=== PATIENT | female | born 1990 | race Caucasian/White ===

== ENCOUNTER 2016-10-28 09:32 | Emergency (ER) | payer BC, OTHER ==
[2016-10-28] MEDS ORDERED: cefTRIAXone SOD 1 GM VIAL (J0696) As Ordered ONE (09:50)
--- NOTE | 2016-10-28 10:32 | EDDOCDS ---
Nurse's Notes [facility] Name: Lydia Grissom Age: 25 yrs Sex: Female : 1990 Arrival Date: 10/28/2016 Time: 09:32 Bed I1 / M1 Private MD: Brijesh Sarabia Diagnosis: Urinary tract infection, site not specified-Recheck Presentation: 10/28 09:39 Presenting complaint: Patient states: here for IV rocephin for her UTI. Adult Sepsis po Screening: The patient does not have new or worsening altered mentation. Patient's respiratory rate is less than 22. Systolic blood pressure is greater than 100. Patient has a qSOFA score of 0- Negative Sepsis Screen. Suicide/Homicide risk assessment- the patient denies having any suicidal and/or homicidal ideations and does not present with any other emotional, behavioral or mental health complaints. Status: Patient is not a field services manager or dependent. Transition of care: patient was not received from another setting of care. 09:39 Acuity: FADIA Level 4 po 09:39 Method Of Arrival: Walkin/Carried/Asstd po Triage Assessment: 09:42 General: Appears in no apparent distress, Behavior is appropriate for age, cooperative, po pleasant. Pain: Location: left flank and right flank Pain currently is 2 out of 10 on a pain scale. Is continuous. HIV screening NA for this visit Offered previously. Neurological: Level of Consciousness is awake, alert, Oriented to person, place, time. Respiratory: Airway is patent Respiratory effort is even, unlabored. Derm: Skin is pink, warm & dry. 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 albuterol sulfate 90 mcg/actuation inhalation HFAA 2 puffs as needed 2. Advair Diskus 100-50 mcg/dose Inhl dsdv 1 puff as needed 3. Bactrim DS 800-160 mg Oral tab 1 tab 2 times per day 4. lisinopril 5 mg Oral tab 1 tab once daily - PMHx: double reflux kidney disease; exercise induced ashtma; Hypertension; - PSHx: 2 surgeries for kidney reflux; - Social history: Smoking status: Patient states was never smoker of tobacco. No barriers to communication noted, The patient speaks fluent Polish. - Family history: Not pertinent. - : The pt / caregiver states he / she is not on anticoagulants. Home medication list is obtained from the patient. - Exposure Risk Screening:: None identified. Screenin:59 Screening information is obtained from the patient. Fall risk: No risks identified. hs1 Assistance ADL's: requires no assistance with activities of daily living. Abuse/DV Screen: The patient / caregiver reports he/she is: not in a situation that causes fear, pain or injury. Nutritional screening: No deficits noted. Advance Directives: There is no active DNR order. home support is adequate. Assessment: :59 General: Appears in no apparent distress, comfortable, Behavior is appropriate for age, hs1 cooperative. Pain: Denies pain. Neurological: No deficits noted. Respiratory: No deficits noted. : Reports burning with urination urinary frequency. Vital Signs: 09:34 BP 129 / 89; Pulse 94; Resp 18; Temp 98.3; Pulse Ox 100% on R/A; Weight 83.91 kg (R); sar1 Height 5 ft. 6 in. (167.64 cm) (R); Pain 2/10; 10:30 BP 108 / 70; Pulse 72; Resp 20; Temp 97.8(O); Pulse Ox 99% on R/A; jc4 09:34 Body Mass Index 29.86 (83.91 kg, 167.64 cm) sar Vitals: 09:34 Log In Time: October 28, 2016 at 09:34. [email or web address] ED Course: 09:34 Patient visited by Elissa Thapa, Survey Superintendent. sar1 09:34 Brijesh Sarabia PA is Private Physician. sar1 09:34 Patient moved to Waiting sar1 09:35 Patient moved to Pre RCE sar1 09:40 Triage Initiated po 09:42 Arm band placed on left wrist. Patient placed in exam room. po 09:43 Patient visited by Maxim Hancock RN. po 09:44 Trista Ro, ALLYSON is Primary Nurse. po 09:44 Patient moved to I2 / M2 po 09:46 D[facility] Nixon [facility]C [facility]. ef1 09:46 Cornelia Jamil MD is Attending Physician. ef1 09:46 Patient visited by Dasia Nixon PA-C. ef1 09:46 Patient moved to I1 / M1 ef1 09:47 [facility] Payment Agreement was scanned into [employer] and attached to record. jp5 09:59 Inserted saline lock: 20 gauge in right antecubital area The patient tolerated the hs1 procedure well. 10:14 Patient visited by Dasia Nixon PA-C. ef1 10:27 Brijesh Sarabia PA is Referral Physician. ef1 10:31 The patient / caregiver is instructed regarding the plan of care and ED course. jc4 10:31 Discontinued lock intact, bleeding controlled, pressure dressing applied, No jc4 redness/swelling at site. 10:31 No procedures done that require assistance. jc4 Administered Medications: 09:59 Drug: cefTRIAXone 1 grams [ceftriaxone 1 gram solution for injection] Route: IVPB; hs1 Infused Over: 30 mins; Site: right antecubital; 10:29 Follow up: IV Status: Completed infusion; IV Intake: 50ml jc4 Intake: 10:29 IV: 50.00ml; Total: 50.00ml. jc4 Order Results: There are currently no results for this order. Outcome: 10:27 Discharge ordered by Provider. ef1 10:30 Discharge Assessment: Patient awake, alert and oriented x 3. No cognitive and/or jc4 functional deficits noted. Patient verbalized understanding of disposition instructions. patient administered narcotics - no. The following High Risk Discharge criteria are identified: None. Discharged to home ambulatory, with significant other. Condition: stable. Discharge instructions given to patient, Instructed on discharge instructions, follow up and referral plans. medication usage, Demonstrated understanding of instructions, medications, Pt was receptive of discharge instructions/ teaching. No special radiology studies were completed. Property :Personal belongings accompany Pt. 10:31 Patient left the ED. jc4 Signatures: Maxim Hancock,RN ALLYSON po Dasia Nixon PA-C PA-C ef1 Emy Hsu RN RN hs1 Trista Ro RN RN jc4 Elissa Thapa, Survey Superintendent Unit sar1 Lucy Esquivel jp5 MTDD
--- NOTE | 2016-10-28 10:32 | EDDOCDS ---
Physician Documentation [facility] Name: Lydia Grissom Age: 25 yrs Sex: Female : 1990 Arrival Date: 10/28/2016 Time: 09:32 Bed I1 / M1 Private MD: Brijesh Sarabia Disposition: 10/28/16 10:27 Discharged to Home/Self Care. Impression: Urinary tract infection, site not specified - Recheck. - Condition is Stable. - Discharge Instructions: Urinary Tract Infection, [id number]. - Prescriptions for Cipro 500 mg Oral Tablet - take 1 tablet by ORAL route 2 times per day; 6 tablet. Reglan 10 mg Oral Tablet - take 1 tablet by ORAL route every 6 hours take 30 minutes before meals and at bedtime; 20 tablet. - Medication Reconciliation, Local Pharmacy Hours form. - Follow up: Brijesh Sarabia; When: 1 - 2 days; Reason: Recheck today's complaints, Continuance of care. Follow up: Emergency Department; Reason: Worsening of conditions. - Problem is new. - Symptoms have improved. - Notes: Pt understands to f/u with her Urologist/Nephroligist or here sooner if s/s worsen. Historical: - Allergies: no known allergies; - Home Meds: 1. albuterol sulfate 90 mcg/actuation inhalation HFAA 2 puffs as needed 2. Advair Diskus 100-50 mcg/dose Inhl dsdv 1 puff as needed 3. Bactrim DS 800-160 mg Oral tab 1 tab 2 times per day 4. lisinopril 5 mg Oral tab 1 tab once daily - PMHx: double reflux kidney disease; exercise induced ashtma; Hypertension; - PSHx: 2 surgeries for kidney reflux; - Social history: Smoking status: Patient states was never smoker of tobacco. No barriers to communication noted, The patient speaks fluent Albanian. - Family history: Not pertinent. - : The pt / caregiver states he / she is not on anticoagulants. Home medication list is obtained from the patient. - Exposure Risk Screening:: None identified. 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 6 in. (167.64 cm) (R); Pain 2/10; 10:30 BP 108 / 70; Pulse 72; Resp 20; Temp 97.8(O); Pulse Ox 99% on R/A; jc4 09:34 Body Mass Index 29.86 (83.91 kg, 167.64 cm) sar1 MDM: 09:47 [facility] Payment Agreement was scanned into [employer] and attached to record. jp5 09:47 IV Saline Lock ordered. ef1 09:47 cefTRIAXone 1 grams IVPB once over 30 mins; dilute in 50mL of NS or D5W ordered. ef1 09:47 Financial registration complete. jp5 Administered Medications: 09:59 Drug: cefTRIAXone 1 grams [ceftriaxone 1 gram solution for injection] Route: IVPB; hs1 Infused Over: 30 mins; Site: right antecubital; 10:29 Follow up: IV Status: Completed infusion; IV Intake: 50ml jc4 Signatures: Maxim Hancock,RN RN Dasia Lim PA-C PA-C ef1 Trista Ro RN RN jc4 Lucy Esquivel jp5 Emy Hsu RN hs1 The chart was reviewed and I authenticate all verbal orders and agree with the evaluation and treatment provided.Attachments: 09:47 [facility] Payment Agreement jp5 MTDD
--- NOTE | 2016-10-30 11:32 | EDDOCDS ---
Nurse's Notes [facility] Name: Lydia Grissom Age: 25 yrs Sex: Female : 1990 Arrival Date: 10/28/2016 Time: 09:32 Bed I1 / M1 Private MD: Brijesh Sarabia Diagnosis: Urinary tract infection, site not specified-Recheck Presentation: 10/28 09:39 Presenting complaint: Patient states: here for IV rocephin for her UTI. Adult Sepsis po Screening: The patient does not have new or worsening altered mentation. Patient's respiratory rate is less than 22. Systolic blood pressure is greater than 100. Patient has a qSOFA score of 0- Negative Sepsis Screen. Suicide/Homicide risk assessment- the patient denies having any suicidal and/or homicidal ideations and does not present with any other emotional, behavioral or mental health complaints. Status: Patient is not a sales service manager or dependent. Transition of care: patient was not received from another setting of care. 09:39 Acuity: FADIA Level 4 po 09:39 Method Of Arrival: Walkin/Carried/Asstd po Triage Assessment: 09:42 General: Appears in no apparent distress, Behavior is appropriate for age, cooperative, po pleasant. Pain: Location: left flank and right flank Pain currently is 2 out of 10 on a pain scale. Is continuous. HIV screening NA for this visit Offered previously. Neurological: Level of Consciousness is awake, alert, Oriented to person, place, time. Respiratory: Airway is patent Respiratory effort is even, unlabored. Derm: Skin is pink, warm & dry. 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 albuterol sulfate 90 mcg/actuation inhalation HFAA 2 puffs as needed 2. Advair Diskus 100-50 mcg/dose Inhl dsdv 1 puff as needed 3. Bactrim DS 800-160 mg Oral tab 1 tab 2 times per day 4. lisinopril 5 mg Oral tab 1 tab once daily - PMHx: double reflux kidney disease; exercise induced ashtma; Hypertension; - PSHx: 2 surgeries for kidney reflux; - Social history: Smoking status: Patient states was never smoker of tobacco. No barriers to communication noted, The patient speaks fluent Setswana. - Family history: Not pertinent. - : The pt / caregiver states he / she is not on anticoagulants. Home medication list is obtained from the patient. - Exposure Risk Screening:: None identified. Screenin:59 Screening information is obtained from the patient. Fall risk: No risks identified. hs1 Assistance ADL's: requires no assistance with activities of daily living. Abuse/DV Screen: The patient / caregiver reports he/she is: not in a situation that causes fear, pain or injury. Nutritional screening: No deficits noted. Advance Directives: There is no active DNR order. home support is adequate. Assessment: :59 General: Appears in no apparent distress, comfortable, Behavior is appropriate for age, hs1 cooperative. Pain: Denies pain. Neurological: No deficits noted. Respiratory: No deficits noted. : Reports burning with urination urinary frequency. Vital Signs: 09:34 BP 129 / 89; Pulse 94; Resp 18; Temp 98.3; Pulse Ox 100% on R/A; Weight 83.91 kg (R); sar1 Height 5 ft. 6 in. (167.64 cm) (R); Pain 2/10; 10:30 BP 108 / 70; Pulse 72; Resp 20; Temp 97.8(O); Pulse Ox 99% on R/A; jc4 09:34 Body Mass Index 29.86 (83.91 kg, 167.64 cm) sar Vitals: 09:34 Log In Time: October 28, 2016 at 09:34. [facility] ED Course: 09:34 Patient visited by Elissa Thapa, Flight Security Specialist. sar1 09:34 Brijesh Sarabia PA is Private Physician. sar1 09:34 Patient moved to Waiting sar1 09:35 Patient moved to Pre RCE sar1 09:40 Triage Initiated po 09:42 Arm band placed on left wrist. Patient placed in exam room. po 09:43 Patient visited by Maxim Hancock RN. po 09:44 Trista Ro, ALLYSON is Primary Nurse. po 09:44 Patient moved to I2 / M2 po 09:46 Dasia Nixon [facility]C [facility]. ef1 09:46 Cornelia Jamil MD is Attending Physician. ef1 09:46 Patient visited by Dasia Nixon PA-C. ef1 09:46 Patient moved to I1 / M1 ef1 09:47 [facility] Payment Agreement was scanned into [employer] and attached to record. jp5 09:59 Inserted saline lock: 20 gauge in right antecubital area The patient tolerated the hs1 procedure well. 10:14 Patient visited by Dasia Nixon PA-C. ef1 10:27 Brijesh Sarabia PA is Referral Physician. ef1 10:31 The patient / caregiver is instructed regarding the plan of care and ED course. jc4 10:31 Discontinued lock intact, bleeding controlled, pressure dressing applied, No jc4 redness/swelling at site. 10:31 No procedures done that require assistance. jc4 11:26 T-Sheet-- Draft Copy was scanned into [employer] and attached to record. se Administered Medications: 09:59 Drug: cefTRIAXone 1 grams [ceftriaxone 1 gram solution for injection] Route: IVPB; hs1 Infused Over: 30 mins; Site: right antecubital; 10:29 Follow up: IV Status: Completed infusion; IV Intake: 50ml jc4 Intake: 10:29 IV: 50.00ml; Total: 50.00ml. jc4 Order Results: There are currently no results for this order. Outcome: 10:27 Discharge ordered by Provider. ef1 10:30 Discharge Assessment: Patient awake, alert and oriented x 3. No cognitive and/or jc4 functional deficits noted. Patient verbalized understanding of disposition instructions. patient administered narcotics - no. The following High Risk Discharge criteria are identified: None. Discharged to home ambulatory, with significant other. Condition: stable. Discharge instructions given to patient, Instructed on discharge instructions, follow up and referral plans. medication usage, Demonstrated understanding of instructions, medications, Pt was receptive of discharge instructions/ teaching. No special radiology studies were completed. Property :Personal belongings accompany Pt. 10:31 Patient left the ED. jc4 Signatures: Maxim Hancock RN RN Dasia Nixon PA-C PA-C ef1 Emy Hsu RN RN hs1 Trista Ro RN RN jc4 Elissa Thapa, Flight Security Specialist Unit Lucy Crane jp5 Cornelia Thompson [facility] Chart Complete MTDD
--- NOTE | 2016-10-30 11:32 | EDDOCDS ---
Physician Documentation [facility] Name: Lydia Grissom Age: 25 yrs Sex: Female : 1990 Arrival Date: 10/28/2016 Time: 09:32 Bed I1 / M1 Private MD: Brijesh Sarabia Disposition: 10/28/16 10:27 Discharged to Home/Self Care. Impression: Urinary tract infection, site not specified - Recheck. - Condition is Stable. - Discharge Instructions: Urinary Tract Infection, Gjyo-[id number]. - Prescriptions for Cipro 500 mg Oral Tablet - take 1 tablet by ORAL route 2 times per day; 6 tablet. Reglan 10 mg Oral Tablet - take 1 tablet by ORAL route every 6 hours take 30 minutes before meals and at bedtime; 20 tablet. - Medication Reconciliation, Local Pharmacy Hours form. - Follow up: Brijesh Sarabia; When: 1 - 2 days; Reason: Recheck today's complaints, Continuance of care. Follow up: Emergency Department; Reason: Worsening of conditions. - Problem is new. - Symptoms have improved. - Notes: Pt understands to f/u with her Urologist/Nephroligist or here sooner if s/s worsen. Historical: - Allergies: no known allergies; - Home Meds: 1. albuterol sulfate 90 mcg/actuation inhalation HFAA 2 puffs as needed 2. Advair Diskus 100-50 mcg/dose Inhl dsdv 1 puff as needed 3. Bactrim DS 800-160 mg Oral tab 1 tab 2 times per day 4. lisinopril 5 mg Oral tab 1 tab once daily - PMHx: double reflux kidney disease; exercise induced ashtma; Hypertension; - PSHx: 2 surgeries for kidney reflux; - Social history: Smoking status: Patient states was never smoker of tobacco. No barriers to communication noted, The patient speaks fluent Estonian. - Family history: Not pertinent. - : The pt / caregiver states he / she is not on anticoagulants. Home medication list is obtained from the patient. - Exposure Risk Screening:: None identified. 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 6 in. (167.64 cm) (R); Pain 2/10; 10:30 BP 108 / 70; Pulse 72; Resp 20; Temp 97.8(O); Pulse Ox 99% on R/A; jc4 09:34 Body Mass Index 29.86 (83.91 kg, 167.64 cm) sar1 MDM: 09:47 [facility] Payment Agreement was scanned into [employer] and attached to record. jp5 09:47 IV Saline Lock ordered. ef1 09:47 cefTRIAXone 1 grams IVPB once over 30 mins; dilute in 50mL of NS or D5W ordered. ef1 09:47 Financial registration complete. jp5 11:26 T-Sheet-- Draft Copy was scanned into [employer] and attached to record. [facility] Administered Medications: 09:59 Drug: cefTRIAXone 1 grams [ceftriaxone 1 gram solution for injection] Route: IVPB; hs1 Infused Over: 30 mins; Site: right antecubital; 10:29 Follow up: IV Status: Completed infusion; IV Intake: 50ml jc4 Signatures: Maxim Hancock,RN RN Dasia Lim PABarbaraC PA-C ef1 Trista Ro RN RN jc4 Lucy Esquivel 5 Cornelia Thompson Hannah RN hs1 The chart was reviewed and I authenticate all verbal orders and agree with the evaluation and treatment provided.Attachments: 09:47 [facility] Payment Agreement 5 11:26 T-Sheet-- Draft Copy [facility] Chart Complete MTDD
--- NOTE | 2016-10-30 11:32 | EDDOCDS ---
Physician Documentation [facility] Name: Lydia Grissom Age: 25 yrs Sex: Female : 1990 Arrival Date: 10/28/2016 Time: 09:32 Bed I1 / M1 Private MD: Brijesh Sarabia Disposition: 10/28/16 10:27 Discharged to Home/Self Care. Impression: Urinary tract infection, site not specified - Recheck. - Condition is Stable. - Discharge Instructions: Urinary Tract Infection, [id number]. - Prescriptions for Cipro 500 mg Oral Tablet - take 1 tablet by ORAL route 2 times per day; 6 tablet. Reglan 10 mg Oral Tablet - take 1 tablet by ORAL route every 6 hours take 30 minutes before meals and at bedtime; 20 tablet. - Medication Reconciliation, Local Pharmacy Hours form. - Follow up: Brijesh Sarabia; When: 1 - 2 days; Reason: Recheck today's complaints, Continuance of care. Follow up: Emergency Department; Reason: Worsening of conditions. - Problem is new. - Symptoms have improved. - Notes: Pt understands to f/u with her Urologist/Nephroligist or here sooner if s/s worsen. Historical: - Allergies: no known allergies; - Home Meds: 1. albuterol sulfate 90 mcg/actuation inhalation HFAA 2 puffs as needed 2. Advair Diskus 100-50 mcg/dose Inhl dsdv 1 puff as needed 3. Bactrim DS 800-160 mg Oral tab 1 tab 2 times per day 4. lisinopril 5 mg Oral tab 1 tab once daily - PMHx: double reflux kidney disease; exercise induced ashtma; Hypertension; - PSHx: 2 surgeries for kidney reflux; - Social history: Smoking status: Patient states was never smoker of tobacco. No barriers to communication noted, The patient speaks fluent Czech. - Family history: Not pertinent. - : The pt / caregiver states he / she is not on anticoagulants. Home medication list is obtained from the patient. - Exposure Risk Screening:: None identified. RENEWAL SPECIALIST: 10/28 09:42 LMP 10/02/2016 po Vital Signs: 09:34 BP 129 / 89; Pulse 94; Resp 18; Temp 98.3; Pulse Ox 100% on R/A; Weight 83.91 kg / sar1 184.99 lbs (R); Height 5 ft. 6 in. (167.64 cm) (R); Pain 2/10; 10:30 BP 108 / 70; Pulse 72; Resp 20; Temp 97.8(O); Pulse Ox 99% on R/A; jc4 09:34 Body Mass Index 29.86 (83.91 kg, 167.64 cm) sar1 MDM: 09:47 [facility] Payment Agreement was scanned into [employer] and attached to record. jp5 09:47 IV Saline Lock ordered. ef1 09:47 cefTRIAXone 1 grams IVPB once over 30 mins; dilute in 50mL of NS or D5W ordered. ef1 09:47 Financial registration complete. jp5 11:26 T-Sheet-- Draft Copy was scanned into [employer] and attached to record. [facility] Administered Medications: 09:59 Drug: cefTRIAXone 1 grams [ceftriaxone 1 gram solution for injection] Route: IVPB; hs1 Infused Over: 30 mins; Site: right antecubital; 10:29 Follow up: IV Status: Completed infusion; IV Intake: 50ml jc4 Signatures: Maxim Hancock,RN RN Dasia Lim PABarbaraC PA-C ef1 Trista Ro RN RN jc4 Lucy Esquivel 5 Cornelia Thompson Hannah RN hs1 The chart was reviewed and I authenticate all verbal orders and agree with the evaluation and treatment provided.Attachments: 09:47 [facility] Payment Agreement 5 11:26 T-Sheet-- Draft Copy [facility] Chart Complete MTDD
== END 2016-10-28 10:31 | disposition home or self-care (01) ==
LOC: M ED 09:32
DX: Z51.89 Encounter for other specified aftercare (principal); N39.0 Urinary tract infection, site not specified; I10 Essential (primary) hypertension; N13.70 Vesicoureteral-reflux, unspecified; J45.990 Exercise induced bronchospasm; Z79.899 Other long term (current) drug therapy
CPT/HCPCS: 96365; 99283; J0696

== ENCOUNTER → 2017-01-01 | Outpatient (REF) | payer OTHER ==
[2017-01-01 11:36] LABS: BASO % 0.2 % (0.0-1.0); EOS # 0.1 K/mm3 (0.0-0.50); EOS % 1.4 % (0.0-3.0); LARGE UNSTAINED CELL # 0.2 K/mm3 (0.0-0.4); LARGE UNSTAINED CELL % 2.3 % (0.0-4.0); LYMPH # 1.7 K/mm3 (1.5-6.5); LYMPH % 20.9 % (24.0-44.0); MEAN CORPUSCULAR HEMOGLOBIN 28.6 pg (27.0-33.0); MEAN CORPUSCULAR HGB CONC 33.6 g/dl (32.0-36.5); MEAN CORPUSCULAR VOLUME 85.3 fl (80.0-96.0); MONO # 0.4 K/mm3 (0.0-0.8); MONO % 4.9 % (0.0-5.0); NEUTROPHILS # 5.7 K/mm3 (1.8-7.7); NEUTROPHILS % 70.3 % (36.0-66.0); PLATELET COUNT, AUTOMATED 256 k/mm3 (150-450); RED CELL DISTRIBUTION WIDTH 12.4 % (11.5-14.5); WHITE BLOOD COUNT 8.1 K/mm3 (4.0-10.0)
[2017-01-01 11:46] LABS: ANION GAP 10 MEQ/L (8-16); BLOOD UREA NITROGEN 10 MG/DL (7-18); CALCIUM LEVEL 9.3 MG/DL (8.5-10.1); CARBON DIOXIDE LEVEL 26 MEQ/L (21-32); CHLORIDE LEVEL 103 MEQ/L (98-107); CREATININE FOR GFR 0.84 MG/DL (0.55-1.02); GLOMERULAR FILTRATION RATE > 60.0 (>60); GLUCOSE, FASTING 93 MG/DL (70-105); POTASSIUM SERUM 4.1 MEQ/L (3.5-5.1); SODIUM LEVEL 139 MEQ/L (136-145)
== END ==
LOC: M LAB REF 11:11
PROVIDERS: ATTEND Physician Assistant
DX: R50.9 Fever, unspecified (principal)

== ENCOUNTER 2017-04-19 22:28 | Emergency (ER) | payer OTHER ==
[~2017-04-19] VITALS: Ht 167.6 cm; Wt 86.3 kg
[2017-04-19] MEDS ORDERED: LISI-542 PO (22:33)
[2017-04-19] MEDS ORDERED: KETOROLAC 30 MG/ML VIAL (J1885) As Ordered ONE (22:58)
[2017-04-19] MEDS ORDERED: KETOROLAC 30 MG/ML VIAL (J1885) IV ONE (23:00)
[2017-04-19 23:06] LABS: BASO % 0.5 % (0.0-1.0); EOS # 0.5 K/mm3 (0.0-0.50); EOS % 4.9 % (0.0-3.0); LARGE UNSTAINED CELL # 0.1 K/mm3 (0.0-0.4); LARGE UNSTAINED CELL % 1.5 % (0.0-4.0); LYMPH # 3.4 K/mm3 (1.5-6.5); LYMPH % 34.2 % (24.0-44.0); MEAN CORPUSCULAR HEMOGLOBIN 28.6 pg (27.0-33.0); MEAN CORPUSCULAR HGB CONC 33.5 g/dl (32.0-36.5); MEAN CORPUSCULAR VOLUME 85.5 fl (80.0-96.0); MONO # 0.4 K/mm3 (0.0-0.8); MONO % 3.9 % (0.0-5.0); NEUTROPHILS # 5.3 K/mm3 (1.8-7.7); NEUTROPHILS % 54.9 % (36.0-66.0); PLATELET COUNT, AUTOMATED 292 k/mm3 (150-450); RED CELL DISTRIBUTION WIDTH 12.7 % (11.5-14.5); WHITE BLOOD COUNT 9.6 K/mm3 (4.0-10.0)
[2017-04-19] MEDS ORDERED: NORCO, ANEXSIA 5/325MG TABLET (HYDROcodone/ACETAMINOPHEN) PO ONE ×2 (23:15→23:30)
[2017-04-19 23:20] LABS: ANION GAP 9 MEQ/L (8-16); BLOOD UREA NITROGEN 20 MG/DL (7-18); CALCIUM LEVEL 8.7 MG/DL (8.5-10.1); CARBON DIOXIDE LEVEL 25 MEQ/L (21-32); CHLORIDE LEVEL 106 MEQ/L (98-107); CREATININE FOR GFR 0.97 MG/DL (0.55-1.02); GLOMERULAR FILTRATION RATE > 60.0 (>60); GLUCOSE, FASTING 101 MG/DL (70-105); POTASSIUM SERUM 3.9 MEQ/L (3.5-5.1); SODIUM LEVEL 140 MEQ/L (136-145)
[2017-04-19] MEDS ORDERED: NAPR500T PO (23:24)
[2017-04-19] MEDS ORDERED: CIPR-249 PO (23:24)
[2017-04-19] MEDS ORDERED: CIPROFLOXACIN 500 MG TAB PO ONE (23:30)
[2017-04-19] MEDS ORDERED: cefTRIAXone SOD 1 GM in D5W MINI-BAG PLUS 50 ML IV ONE (23:30)
[2017-04-19 23:31] VITALS: BP 131/94
[2017-04-19] MEDS ORDERED: ZOFR4TAB3 PO (23:37)
== END 2017-04-19 23:56 | disposition home or self-care (01) ==
LOC: M ED 23:18
DX: N10 Acute pyelonephritis (principal); B96.20 Unspecified Escherichia coli [E. coli] as the cause of diseases classified elsewhere; I10 Essential (primary) hypertension; Z79.899 Other long term (current) drug therapy
CPT/HCPCS: 80048; 81001; 85025; 87088; 87186; 96374; 96375; 99283; J0696; J1885

== ENCOUNTER → 2017-06-03 | Outpatient (REF) | payer OTHER ==
[~2017-06-03] MED LIST: CIPR-249 PO; LISI-542 PO; NAPR500T PO; ZOFR4TAB3 PO
== END ==
LOC: M LAB REF 17:37
PROVIDERS: ATTEND Advanced Practice Midwife
DX: Z12.4 Encounter for screening for malignant neoplasm of cervix (principal)

== ENCOUNTER 2017-12-17 11:10 | Emergency (ER) | payer OTHER ==
[2017-12-17] MEDS: CEFTRIAXONE SOD 1 GM in APPROPRIATE DILUENT 1 EA IV (11:45)
[2017-12-17 11:51] LABS: BASO % 0.4 % (0.0-1.0); EOS # 0.2 10^3/uL (0.0-0.50); EOS % 2.2 % (0.0-3.0); HEMATOCRIT 39.4 % (36.0-47.0); HEMOGLOBIN 13.1 g/dl (12.0-16.0); IMMATURE GRANULOCYTE % 0.3 % (0-3.0); LYMPH # 2.3 10^3/uL (1.5-6.5); LYMPH % 29.5 % (24.0-44.0); MEAN CORPUSCULAR HEMOGLOBIN 28.6 pg (27.0-33.0); MEAN CORPUSCULAR HGB CONC 33.2 g/dl (32.0-36.5); MONO # 0.4 10^3/uL (0.0-0.8); MONO % 5.5 % (0.0-5.0); NEUTROPHILS # 4.8 10^3/uL (1.8-7.7); NEUTROPHILS % 62.1 % (36.0-66.0); PLATELET COUNT, AUTOMATED 262 10^3/uL (150-450); RED BLOOD COUNT 4.58 10^6/uL (4.00-5.40); WHITE BLOOD COUNT 7.8 10^3/uL (4.0-10.0)
[2017-12-17] MEDS: CIPROFLOXACIN 500 MG TAB PO (11:53)
[2017-12-17] MEDS: KETOROLAC 30 MG/ML VIAL (J1885) IV (11:54)
[2017-12-17] MEDS: NS 500 ML IV (11:55)
[2017-12-17 12:04] LABS: CONTROL LINE UCG INT CTR LINE PRESENT; URINE PREG TEST NEGATIVE (NEGATIVE)
[2017-12-17 12:05] LABS: SP GRAVITY,URINE MANUAL REFLEX 1.025 (1.002-1.035)
[2017-12-17 12:06] LABS: BILIRUBIN, URINE MANUAL NEGATIVE (NEGATIVE); BLOOD URINE MANUAL RFX POSITIVE (NEGATIVE); GLUCOSE, URINE (UA) MANUAL NEGATIVE (NEGATIVE); KETONE, URINE MANUAL NEGATIVE (NEGATIVE); MICROSCOPIC INDICATED? RFX YES (NO); NITRITE, URINE MANUAL RFX POSITIVE (NEGATIVE); PROTEIN, URINE MANUAL REFLEX 2+ mg/dL (NEGATIVE); UROBILINOGEN, URINE MANUAL NORMAL (NORMAL)
[2017-12-17 12:14] LABS: ALBUMIN 4.2 GM/DL (3.2-5.2); ALKALINE PHOSPHATASE 63 U/L (45-117); ALT/SGPT 16 U/L (12-78); ANION GAP 7 MEQ/L (8-16); AST/SGOT 11 U/L (7-37); BILIRUBIN,TOTAL 0.6 MG/DL (0.2-1.0); BLOOD UREA NITROGEN 13 MG/DL (7-18); C REACTIVE PROTEIN QUANTITATIV < 0.30 MG/DL (0.00-0.30); CALCIUM LEVEL 8.7 MG/DL (8.5-10.1); CARBON DIOXIDE LEVEL 26 MEQ/L (21-32); CHLORIDE LEVEL 107 MEQ/L (98-107); CREATININE FOR GFR 0.88 MG/DL (0.55-1.30); GLOMERULAR FILTRATION RATE > 60.0 (>60); GLUCOSE, FASTING 95 MG/DL (70-100); POTASSIUM SERUM 3.1 MEQ/L (3.5-5.1); SODIUM LEVEL 140 MEQ/L (136-145); TOTAL PROTEIN 7.7 GM/DL (6.4-8.2)
[2017-12-17 12:17] LABS: WBC, URINE MAN RFX TNTC /hpf (0-3)
[2017-12-17 12:18] LABS: BACTERIA, URINE LARGE AMOUNT; RENAL EPITHELIAL CELLS, URINE SMALL AMOUNT /hpf; SQUAMOUS EPITHELIAL CELL URINE LARGE AMOUNT /hpf (SMALL AMT); TRANSITIONAL EPI CELLS, URINE SMALL AMOUNT /hpf
[2017-12-17 12:21] LABS: HYALINE CAST, URINE NONE SEEN /lpf (0-1)
[2017-12-17 12:22] LABS: MICROSCOPIC EXAM PERFORMED
== END 2017-12-17 13:07 | disposition home or self-care (01) ==
LOC: M ED 11:10
DX: N10 Acute pyelonephritis (principal); N39.0 Urinary tract infection, site not specified; I10 Essential (primary) hypertension; N13.70 Vesicoureteral-reflux, unspecified; Z79.899 Other long term (current) drug therapy
CPT/HCPCS: J1885

== ENCOUNTER → 2018-05-08 | Outpatient (REF) | payer OTHER ==
[2018-05-08 20:14] LABS: APPEARANCE, URINE CLEAR (CLEAR); BACTERIA, URINE AUTO NEGATIVE (NEGATIVE); BILIRUBIN, URINE AUTO NEGATIVE (NEGATIVE); BLOOD, URINE BLOOD NEGATIVE (NEGATIVE); COLOR, URINE YELLOW (YELLOW); GLUCOSE, URINE (UA) AUTO NEGATIVE (NEGATIVE); KETONE, URINE AUTO NEGATIVE (NEGATIVE); LEUKOCYTE ESTERASE, URINE AUTO NEGATIVE (NEGATIVE); MUCUS, URINE SMALL (NEGATIVE); NITRITE, URINE AUTO NEGATIVE (NEGATIVE); PROTEIN, URINE AUTO NEGATIVE (NEGATIVE); RBC, URINE AUTO 0 /HPF (0-3); SPECIFIC GRAVITY URINE AUTO 1.015 (1.002-1.035); SQUAMOUS EPITHELIAL CELL UR AU 4 /HPF (0-6); UROBILINOGEN, URINE AUTO 0.2 mg/dL (0.0-2.0); WBC, URINE AUTO 1 /HPF (0-3)
== END ==
LOC: M LAB REF 17:16
DX: N39.0 Urinary tract infection, site not specified (principal)

== ENCOUNTER 2018-06-12 16:48 | Emergency (ER) | payer OTHER ==
[2018-06-12 17:51] LABS: BASO # 0.1 10^3/uL (0.0-0.2); BASO % 0.6 % (0.0-1.0); EOS # 0.2 10^3/uL (0.0-0.50); EOS % 2.5 % (0.0-3.0); HEMATOCRIT 37.5 % (36.0-47.0); HEMOGLOBIN 12.7 g/dl (12.0-15.5); IMMATURE GRANULOCYTE % 0.2 % (0-3.0); LYMPH % 32.1 % (24.0-44.0); MEAN CORPUSCULAR HEMOGLOBIN 29.6 pg (27.0-33.0); MEAN CORPUSCULAR HGB CONC 33.9 g/dl (32.0-36.5); MEAN CORPUSCULAR VOLUME 87.4 fl (80.0-96.0); MONO # 0.4 10^3/uL (0.0-0.8); MONO % 4.2 % (0.0-5.0); NEUTROPHILS # 5.7 10^3/uL (1.8-7.7); NEUTROPHILS % 60.4 % (36.0-66.0); PLATELET COUNT, AUTOMATED 262 10^3/uL (150-450); RED BLOOD COUNT 4.29 10^6/uL (4.00-5.40); RED CELL DISTRIBUTION WIDTH 11.9 % (11.5-14.5); WHITE BLOOD COUNT 9.4 10^3/uL (4.0-10.0)
[2018-06-12 18:01] LABS: KETONE, URINE AUTO RFX NEGATIVE (NEGATIVE); LEUKOCYTE ESTERASE UR AUTO RFX NEGATIVE (NEGATIVE); NITRITE, URINE AUTO RFX NEGATIVE (NEGATIVE); RBC, URINE AUTO RFX 2 /HPF (0-3); SPECIFIC GRAVITY UR AUTO RFX 1.001 (1.002-1.035); SQUAM EPITHELIAL CELL UR AURFX 0 /HPF (0-6); WBC, URINE AUTO RFX 0 /HPF (0-3)
[2018-06-12 18:26] LABS: ANION GAP 8 MEQ/L (8-16); BLOOD UREA NITROGEN 10 MG/DL (7-18); CALCIUM LEVEL 8.8 MG/DL (8.5-10.1); CARBON DIOXIDE LEVEL 27 MEQ/L (21-32); CHLORIDE LEVEL 106 MEQ/L (98-107); CREATININE FOR GFR 0.72 MG/DL (0.55-1.30); GLOMERULAR FILTRATION RATE > 60.0 (>60); GLUCOSE, FASTING 86 MG/DL (70-100); HCG, SERUM QUANTITATIVE 2551 MIU/ML; POTASSIUM SERUM 3.6 MEQ/L (3.5-5.1); SODIUM LEVEL 141 MEQ/L (136-145)
== END 2018-06-12 20:12 | disposition home or self-care (01) ==
LOC: M ED 16:48
DX: Z32.01 Encounter for pregnancy test, result positive (principal); N83.201 Unspecified ovarian cyst, right side; N93.9 Abnormal uterine and vaginal bleeding, unspecified; I10 Essential (primary) hypertension; Z3A.01 Less than 8 weeks gestation of pregnancy
CPT/HCPCS: 76801

== ENCOUNTER → 2018-06-14 | Outpatient (CLI) | payer OTHER ==
[2018-06-14 13:21] LABS: HCG, SERUM QUANTITATIVE 650 MIU/ML
== END ==
LOC: M LAB 12:40
DX: N92.6 Irregular menstruation, unspecified (principal)

== ENCOUNTER → 2018-07-01 | Outpatient (CLI) | payer OTHER ==
[2018-07-01 08:13] LABS: HCG, SERUM QUANTITATIVE 3 MIU/ML
== END ==
LOC: M LAB 07:09
DX: O03.9 Complete or unspecified spontaneous abortion without complication (principal)
CPT/HCPCS: 84702

== ENCOUNTER → 2018-08-04 | Outpatient (CLI) | payer OTHER | LOC: M LAB 12:23 | DX: N91.2 Amenorrhea, unspecified (principal) ==

== ENCOUNTER → 2018-08-04 | Outpatient (REF) | payer OTHER ==
[2018-08-04 13:18] LABS: HCG, SERUM QUANTITATIVE 51 MIU/ML
== END ==
LOC: M LAB REF 12:33
DX: N91.2 Amenorrhea, unspecified (principal)

== ENCOUNTER → 2018-08-06 | Outpatient (REF) | payer OTHER ==
[2018-08-06 13:16] LABS: HCG, SERUM QUANTITATIVE 130 MIU/ML
== END ==
LOC: M LAB REF 12:41
DX: N91.2 Amenorrhea, unspecified (principal)
CPT/HCPCS: 84702

== ENCOUNTER → 2018-09-30 | Outpatient (CLI) | payer OTHER ==
[2018-09-30 19:14] LABS: ALT/SGPT 13 U/L (12-78); AST/SGOT 7 U/L (7-37); BILIRUBIN,TOTAL 0.3 MG/DL (0.2-1.0); CREATININE FOR GFR 0.85 MG/DL (0.55-1.30); GLOMERULAR FILTRATION RATE > 60.0 (>60); LDH LACTATE DEHYDROGENASE 130 U/L (84-246); TOTAL PROTEIN,RANDOM URINE 17.1 MG/DL (0.0-12.0); URIC ACID 3.3 MG/DL (2.6-6.0)
[2018-09-30 19:18] LABS: BASO % 0.3 % (0.0-1.0); EOS # 0.2 10^3/uL (0.0-0.50); EOS % 1.8 % (0.0-3.0); HEMATOCRIT 39.6 % (36.0-47.0); IMMATURE GRANULOCYTE % 0.5 % (0-3.0); LYMPH # 2.3 10^3/uL (1.5-6.5); LYMPH % 22.5 % (24.0-44.0); MEAN CORPUSCULAR HEMOGLOBIN 29.1 pg (27.0-33.0); MEAN CORPUSCULAR HGB CONC 32.8 g/dl (32.0-36.5); MEAN CORPUSCULAR VOLUME 88.6 fl (80.0-96.0); MONO # 0.6 10^3/uL (0.0-0.8); MONO % 5.5 % (0.0-5.0); NEUTROPHILS % 69.4 % (36.0-66.0); PLATELET COUNT, AUTOMATED 265 10^3/uL (150-450); RED BLOOD COUNT 4.47 10^6/uL (4.00-5.40); RED CELL DISTRIBUTION WIDTH 12.6 % (11.5-14.5)
[2018-09-30 21:29] LABS: CHLAMYDIA DNA AMPLIFICATION NEGATIVE (NEGATIVE); GC DNA AMPLIFICATION NEGATIVE (NEGATIVE)
[2018-10-01 10:40] LABS: RUBELLA IgG QUALITATIVE IMMUNE (IMMUNE)
[2018-10-01 10:42] LABS: HBsAg Prenatal NEGATIVE (NEGATIVE)
[2018-10-01 11:08] LABS: HEPATITIS C VIRUS ABY INDEX 0.1 INDEX (<0.8)
[2018-10-01 11:09] LABS: HIV 1&2 SCREEN CENTAUR NEGATIVE (NEGATIVE)
== END ==
LOC: M SMT 14:53
DX: O10.011 Pre-existing essential hypertension complicating pregnancy, first trimester (principal)
CPT/HCPCS: 84460

== ENCOUNTER → 2018-10-06 | Outpatient (CLI) | payer OTHER | LOC: M LAB 17:10 | DX: I10 Essential (primary) hypertension (principal) ==

== ENCOUNTER → 2018-10-06 | Outpatient (REF) | payer OTHER ==
[2018-10-06 18:32] LABS: HEMATOCRIT 36.3 % (36.0-47.0); HEMOGLOBIN 12.5 g/dl (12.0-15.5); MEAN CORPUSCULAR HEMOGLOBIN 29.7 pg (27.0-33.0); MEAN CORPUSCULAR HGB CONC 34.4 g/dl (32.0-36.5); MEAN CORPUSCULAR VOLUME 86.2 fl (80.0-96.0); PLATELET COUNT, AUTOMATED 258 10^3/uL (150-450); RED BLOOD COUNT 4.21 10^6/uL (4.00-5.40); RED CELL DISTRIBUTION WIDTH 12.5 % (11.5-14.5); WHITE BLOOD COUNT 10.9 10^3/uL (4.0-10.0)
[2018-10-06 18:35] LABS: AMORPHOUS SEDIMENT SMALL (NEGATIVE); APPEARANCE, URINE CLOUDY (CLEAR); BACTERIA, URINE AUTO NEGATIVE (NEGATIVE); BILIRUBIN, URINE AUTO NEGATIVE (NEGATIVE); BLOOD, URINE BLOOD NEGATIVE (NEGATIVE); COLOR, URINE YELLOW (YELLOW); GLUCOSE, URINE (UA) AUTO NEGATIVE (NEGATIVE); KETONE, URINE AUTO NEGATIVE (NEGATIVE); LEUKOCYTE ESTERASE, URINE AUTO NEGATIVE (NEGATIVE); MUCUS, URINE SMALL (NEGATIVE); NITRITE, URINE AUTO NEGATIVE (NEGATIVE); PROTEIN, URINE AUTO NEGATIVE (NEGATIVE); RBC, URINE AUTO 2 /HPF (0-3); SQUAMOUS EPITHELIAL CELL UR AU 5 /HPF (0-6); UROBILINOGEN, URINE AUTO 0.2 mg/dL (0.0-2.0); WBC, URINE AUTO 2 /HPF (0-3)
[2018-10-06 18:41] LABS: ALBUMIN 3.5 GM/DL (3.2-5.2); ALBUMIN/GLOBULIN RATIO 0.83 (1.00-1.93); ALKALINE PHOSPHATASE 52 U/L (45-117); ALT/SGPT 16 U/L (12-78); ANION GAP 6 MEQ/L (8-16); AST/SGOT 13 U/L (7-37); BILIRUBIN,TOTAL 0.4 MG/DL (0.2-1.0); BLOOD UREA NITROGEN 10 MG/DL (7-18); CALCIUM LEVEL 8.5 MG/DL (8.5-10.1); CARBON DIOXIDE LEVEL 27 MEQ/L (21-32); CHLORIDE LEVEL 105 MEQ/L (98-107); CREATININE FOR GFR 0.62 MG/DL (0.55-1.30); GLOMERULAR FILTRATION RATE > 60.0 (>60); GLUCOSE, FASTING 73 MG/DL (70-100); POTASSIUM SERUM 3.4 MEQ/L (3.5-5.1); SODIUM LEVEL 138 MEQ/L (136-145); TOTAL PROTEIN 7.7 GM/DL (6.4-8.2)
== END ==
LOC: M LAB REF 17:44
DX: I10 Essential (primary) hypertension (principal)

== ENCOUNTER → 2018-11-11 | Outpatient (REF) | payer OTHER ==
[~2018-11-11] MED LIST changes: +DIFL150T PO; +KETO10TAB PO; +LABE10TAB PO; +NAPR-50 PO; -NAPR500T PO; +PREN1TAB26 PO; +ZOFR4TAB14 PO; -ZOFR4TAB3 PO
[2018-11-11 21:08] LABS: APPEARANCE, URINE CLEAR (CLEAR); BACTERIA, URINE AUTO NEGATIVE (NEGATIVE); BILIRUBIN, URINE AUTO NEGATIVE (NEGATIVE); BLOOD, URINE BLOOD NEGATIVE (NEGATIVE); COLOR, URINE STRAW (YELLOW); GLUCOSE, URINE (UA) AUTO NEGATIVE (NEGATIVE); KETONE, URINE AUTO NEGATIVE (NEGATIVE); LEUKOCYTE ESTERASE, URINE AUTO NEGATIVE (NEGATIVE); MUCUS, URINE SMALL (NEGATIVE); NITRITE, URINE AUTO NEGATIVE (NEGATIVE); PROTEIN, URINE AUTO NEGATIVE (NEGATIVE); RBC, URINE AUTO 1 /HPF (0-3); SPECIFIC GRAVITY URINE AUTO 1.003 (1.002-1.035); SQUAMOUS EPITHELIAL CELL UR AU 3 /HPF (0-6); UROBILINOGEN, URINE AUTO 0.2 mg/dL (0.0-2.0); WBC, URINE AUTO 2 /HPF (0-3)
== END ==
LOC: M LAB REF 11:28
PROVIDERS: ATTEND Physician Assistant Medical
DX: N39.0 Urinary tract infection, site not specified (principal)

== ENCOUNTER → 2018-11-25 | Outpatient (CLI) | payer OTHER ==
--- NOTE | 2018-11-25 14:12 | REP ---
OB ULTRASOUND: Real-time sonographic evaluation of the gravid uterus is performed. There is a single living intrauterine gestation. Estimated gestational age is 21 weeks 3 days, EDC 04/04/2019. Today's measurements indicate appropriate growth. BPD 50 mm = 21 weeks 0 days, 39th percentile HC 176 mm = 20 weeks 1 day, 11th percentile AC 169 mm = 21 weeks 6 days, 60th percentile Femur length 33 mm = 20 weeks 2 days, 22nd percentile HC/AC ratio 1.04 is essentially at the lower limits of normal, normal range 1.05-1.24. Estimated weight 395 grams at 34th percentile. Cervix is closed and measures 4.0 cm in length. heart rate 137 beats per minute. SEEN/GROSSLY UNREMARKABLE Lateral ventricles Yes Posterior fossa Yes Upper lip Yes Four-chamber heart Yes LVOT Yes RVOT Yes Stomach Yes Cord insertion Yes Three vessel cord Yes Kidneys Yes Bladder Yes Spine Yes position: Variable. Placenta: Anterior and grade 0 with no previa or abruption. Amniotic fluid: Within normal limits. Electronically Signed by Mike Martínez MD 11/25/2018 02:18 P
== END ==
LOC: M RAD 12:28
PROVIDERS: ATTEND Obstetrics & Gynecology
DX: O10.012 Pre-existing essential hypertension complicating pregnancy, second trimester (principal); Z3A.21 21 weeks gestation of pregnancy

== ENCOUNTER → 2019-01-18 | Outpatient (REF) | payer OTHER ==
[2019-01-18 13:16] LABS: HEMATOCRIT 31.4 % (36.0-47.0); HEMOGLOBIN 10.4 g/dl (12.0-15.5); MEAN CORPUSCULAR HEMOGLOBIN 29.7 pg (27.0-33.0); MEAN CORPUSCULAR HGB CONC 33.1 g/dl (32.0-36.5); MEAN CORPUSCULAR VOLUME 89.7 fl (80.0-96.0); PLATELET COUNT, AUTOMATED 229 10^3/uL (150-450); WHITE BLOOD COUNT 10.2 10^3/uL (4.0-10.0)
== END ==
LOC: M LAB 12:57
PROVIDERS: ATTEND Advanced Practice Midwife
DX: O10.012 Pre-existing essential hypertension complicating pregnancy, second trimester (principal); Z3A.00 Weeks of gestation of pregnancy not specified

== ENCOUNTER → 2019-01-23 | Outpatient (CLI) | payer OTHER | LOC: M LAB 06:48 | PROVIDERS: ATTEND Advanced Practice Midwife | DX: O10.012 Pre-existing essential hypertension complicating pregnancy, second trimester (principal) ==

== ENCOUNTER → 2019-02-02 | Outpatient (CLI) | payer OTHER ==
[~2019-02-02] MED LIST changes: -NAPR-50 PO; +NAPR-837 PO
--- NOTE | 2019-02-03 11:00 | REP ---
Clinical: Growth evaluation. Comparison: 11/25/2018 . Findings: Examination demonstrates a single live intrauterine in the cephalic presentation. motion is identified by technologist. Placenta is noted anterior and grade 08/01 without evidence for placenta previa or abruption. Amniotic fluid volume is normal. Cervix measures 2.9 cm in length and appears closed. No evidence for nuchal cord. Gestational age by LMP 29 weeks 3 days with HENRIK 04/17/2019 . Gestational age by current measurements 30 weeks 3 day with HENRIK is 04/10/2019 . FHR equals 143 beats per minute. BPD 7.9 cm 31 weeks 6 days HC 27.1 cm 29 weeks 4 days AC 27.7 cm 31 weeks 5 days FL 5.5 cm 29 weeks 1 day HL 5.1 cm 30 weeks 0 days HC/AC ratio 0.98 Estimated weight 1628 grams ( 73rd percentile). Amniotic fluid index: 14.1 cm (8.7 - 23.9) Umbilical cord SD ratio: 2.55 Impression: Single live intrauterine in cephalic presentation demonstrating appropriate interval growth. No gross abnormalities are identified. Electronically Signed by Dennis Magaña MD 02/03/2019 10:52 [facility]
== END ==
LOC: M RAD 13:30
PROVIDERS: ATTEND Obstetrics & Gynecology
DX: O10.013 Pre-existing essential hypertension complicating pregnancy, third trimester (principal)

== ENCOUNTER → 2019-02-25 | Outpatient (CLI) | payer OTHER ==
--- NOTE | 2019-02-26 02:42 | REP ---
Clinical: Anatomical evaluation. Comparison: 02/02/2019 . Findings: Examination demonstrates a single live intrauterine in cephalic presentation. motion is identified by technologist. Placenta is noted anterior and grade air grade one without evidence for placenta previa or abruption. Amniotic fluid volume is normal. Cervix measures 3.4 cm in length and appears closed. Nuchal cord cannot be excluded. Gestational age by LMP 32 weeks 5 days with HENRIK 04/17/2019 . Gestational age by current measurements 33 weeks 5-day with HENRIK 04/10/2019 . FHR equals 139 beats per minute. BPD 8.3 cm 33 weeks 2 days HC 30.8 cm 34 weeks 2 days AC 30.3 cm 34 weeks 2 days FL 6.4 cm 33 weeks 0 days HL 5.8 cm 33 weeks 6 days HC/AC ratio 1.02 Estimated weight 2285 grams ( 34th percentile). Amniotic fluid index: 8.9 cm (8.0 - 24.9) Umbilical cord SD ratio: 2.60 (2.00 - 3.00) Limited anatomical assessment without obvious abnormality. Impression: 1. Single live intrauterine in cephalic presentation demonstrating appropriate interval growth. 2. No gross abnormalities are identified. 3. Nuchal cord cannot be excluded. Electronically Signed by Dennis Magaña MD 02/26/2019 02:33 A
== END ==
LOC: M RAD 09:25
PROVIDERS: ATTEND Obstetrics & Gynecology
DX: O10.013 Pre-existing essential hypertension complicating pregnancy, third trimester (principal); Z3A.33 33 weeks gestation of pregnancy

== ENCOUNTER → 2019-03-20 | Outpatient (CLI) | payer OTHER ==
[~2019-03-20] MED LIST changes: +COLA100C5 PO; +FERR325T3 PO; +IBUP80TA PO; +LABE100T36 PO; +MAPA500T2 PO; +PERCOCET PO
--- NOTE | 2019-03-20 11:54 | REP ---
Clinical: Growth evaluation Comparison: 02/25/2019 . Findings: Examination demonstrates a single live intrauterine in cephalic presentation. motion is identified by technologist. Placenta is noted anterior and grade II without evidence for placenta previa or abruption. Amniotic fluid volume is normal. Cervix appears closed. Nuchal cord cannot be excluded. Gestational age by LMP 36 weeks 0 days with HENRIK 04/17/2019 . Gestational age by current measurements 36 weeks 1 day with HENRIK 06/02/2019 . FHR equals 152 beats per minute. BPD 9.0 cm 36 weeks 4 days HC 32.0 cm 36 weeks 0 days AC 32.3 cm 36 weeks 2 days FL 7.0 cm 36 weeks 0 days HL 6.3 cm 36 weeks 2 days HC/AC ratio 0.99 Estimated weight 2872 grams ( 31st percentile). Amniotic fluid index: 12.5 cm (7.3 - 24.0) Umbilical cord SD ratio: 1.64 Impression: Single live intrauterine in cephalic presentation demonstrating appropriate interval growth. No gross abnormalities are identified. Nuchal cord cannot be excluded. Electronically Signed by Dennis Magaña MD 03/20/2019 11:45 A
== END ==
LOC: M RAD 10:01
PROVIDERS: ATTEND Obstetrics & Gynecology
DX: O10.013 Pre-existing essential hypertension complicating pregnancy, third trimester (principal); Z3A.36 36 weeks gestation of pregnancy

== ENCOUNTER 2019-03-27 20:46 | Inpatient (IN) | payer OTHER ==
[~2019-03-27] VITALS: Ht 167.6 cm; Wt 99.9 kg
[~2019-03-27 20:46] MED LIST changes: -IBUP80TA PO; -MAPA500T2 PO; -PERCOCET PO
[2019-03-27] MEDS ORDERED: MAPA500T2 PO (21:57)
[2019-03-27] MEDS ORDERED: PILL CUTTER 1 EACH XX PRN (23:00)
[2019-03-27 23:03] LABS: HEMATOCRIT 34.3 % (36.0-47.0); HEMOGLOBIN 11.4 g/dl (12.0-15.5); MEAN CORPUSCULAR HEMOGLOBIN 29.7 pg (27.0-33.0); MEAN CORPUSCULAR HGB CONC 33.2 g/dl (32.0-36.5); MEAN CORPUSCULAR VOLUME 89.3 fl (80.0-96.0); PLATELET COUNT, AUTOMATED 191 10^3/uL (150-450); RED BLOOD COUNT 3.84 10^6/uL (4.00-5.40); WHITE BLOOD COUNT 11.4 10^3/uL (4.0-10.0)
[2019-03-27] MEDS: LABETALOL 100 MG TAB PO SCH (23:04)
[2019-03-27 23:11] LABS: ALT/SGPT 22 U/L (12-78); BILIRUBIN,TOTAL 0.2 MG/DL (0.2-1.0); CREATININE FOR GFR 0.64 MG/DL (0.55-1.30); GLOMERULAR FILTRATION RATE > 60.0 (>60); LDH LACTATE DEHYDROGENASE 149 U/L (84-246); URIC ACID 5.2 MG/DL (2.6-6.0)
[2019-03-28] VITALS (31 sets, daily range): BP systolic 110–173; BP diastolic 58–106
[2019-03-28] MEDS: miSOPROStol 50 MCG 1/2 TAB (S0191) PO SCH ×4 (02:46→13:25)
[2019-03-28] MEDS: LABETALOL 100 MG TAB PO SCH ×2 (08:31→21:02)
--- NOTE | 2019-03-28 12:56 | HPE ---
DATE OF ADMISSION: 03/27/2019 HISTORY OF THE PRESENT ILLNESS: The patient is a 28-year-old female who is a 2, para 0-0-1-0 at 37 weeks gestation with an estimated date of delivery (HENRIK) of 04/17/2019 based off of last menstrual period (LMP) and consistent with her first trimester ultrasound. The patient initiated care in her first trimester with [facility]. The patient's has been complicated by chronic hypertension, which she is taking Labetalol 50 mg twice a day for and borderline oligohydramnios. The patient presents to labor and delivery today for induction of labor related to chronic hypertension and borderline oligohydramnios. PAST MEDICAL HISTORY: Exercise-induced asthma, bilateral kidney reflux, chronic hypertension. SURGICAL HISTORY: Kidney surgery times two in 1998 and 2000. FAMILY HISTORY: Maternal grandfather and grandmother both with hypertension and diabetes. SOCIAL HISTORY: The patient is single and in a relationship with the father of the baby who is involved. Patient denies any history of alcohol abuse during or prior to , drug abuse prior to or during . Patient denies being a smoker. Patient denies any history of any sexually transmitted infections. heart rate is 130 beats per minute with moderate variability, positive accelerations and no decelerations. Contractions every 2-5 minutes. Patient reports feeling only occasional contractions. VAGINAL EXAM: Closed cervix, posterior and thick. Vital signs: 98.0, 83, 18, 110/58 LABS: Patient's blood type is AB positive with an antibody screen of negative. Her hemoglobin and hematocrit in her first trimester was 13.0 and 39.6 with platelets of 265. Her Rubella is immune. Her VDRL is nonreactive. Her HIV is negative. Her gonorrhea and chlamydia are both negative. Hepatitis C is nonreactive. Urine has no growth. Patient declined genetic testing. Her 1-hour glucose testing was 136, which resulted in a 3-hour glucose testing needing to be done and was done resulting in a fasting of 74, a 1-hour of 171, 2-hour of 137, 3-hour of 67. Her GBS is negative. PHYSICAL ASSESSMENT: General: Alert and oriented times three. Respiratory: Regular rate with no use of accessory muscles. Abdomen: Gravid, nontender to touch. Cephalic presentation via Manish's and vaginal exam. Lower Extremities: Generalized edema with no pitting. No clonus. ASSESSMENT: Intrauterine at 37 weeks gestation, chronic hypertension with borderline oligohydramnios, category 1 heart rate tracing, negative Group B Streptococcus (GBS). PLAN: Admit patient to labor and delivery. Out of bed ad khloe. Regular diet until patient is switched over to IV Pitocin. The plan is to start Cytotec for cervical ripening. IV and labs ordered per unit protocol. Anesthesia consult per patient's request. Lactated Ringer's to be started, an 800 mL bolus prior to patient's epidural. Anticipate cervical ripening. MTDD
--- NOTE | 2019-03-28 17:56 | NUR ---
Progress Note Patient has received misoprostol for cervical ripening. Intermittently uncomfortable. Hypertensive, normal HR, afebrile SVE: /-3 Cook balloon inserted; 60ml/40ml. EFM: Cat I [place]: irreg ctxs A/P: IOL. Oligo/CHTN. Currently normotensive and asymptomatic. Reassuring maternal and status. -Augment with Pitocin -Repeat SVE once balloon is out. -Treat severe range BP with IV antihypertensive PRN. Laurita Glover DO
[2019-03-28] MEDS ORDERED: OXYTOCIN DRIP 30 UNITS in APPROPRIATE DILUENT 1 EA IV SCH (18:00)
[2019-03-28] MEDS ORDERED: LABETALOL HCL 100 MG/20 ML VIAL IV STA ×2 (18:53→19:05)
[2019-03-28] MEDS ORDERED: BUTORPHANOL 2 MG/ML INJ (J0595) IV ONE (19:30)
[2019-03-28] MEDS ORDERED: PROMETHAZINE INJ 25 MG/ML VIAL (J2550) IV ONE (19:30)
[2019-03-29] VITALS (33 sets, daily range): BP systolic 117–154; BP diastolic 60–97
[2019-03-29] MEDS ORDERED: LR 1,000 ML IV SCH (05:00)
[2019-03-29] MEDS ORDERED: METAL LOCK LOOP XX ONE (07:42)
[2019-03-29] MEDS: LABETALOL 100 MG TAB PO SCH ×2 (09:06→21:23)
--- NOTE | 2019-03-29 10:06 | NUR ---
Progress note Patient not feeling any significant discomfort with uterine contractions. Cook balloon out. No vaginal bleeding, loss of fluid. Denies headache, visual changes, right upper quadrant pain, shortness of breath, chest pain. Normotensive to mild hypertension, normal heart rate, afebrile SVE: 3 cm, 50% effacement, -3 station, intact, cephalic EFM: Category 1 [place]: Contractions every 2-4 minutes on Pitocin A/P: Protracted labor course. Unable to achieve active labor over the past 24 hours. Plan to continue with Pitocin. Repeat SVE in 4-6 hours. If unchanged, I recommend proceeding with a primary low transverse section . Patient expressed understanding. Laurita Glover,
[2019-03-29] MEDS ORDERED: BICITRA 30ML SOLN UDC PO ONE (12:30)
[2019-03-29] MEDS ORDERED: AZITHROMYCIN INJ 500 MG, VIAL MATE ADAPTER 1 EACH in D5W 250 ML IV ONE (12:30)
--- NOTE | 2019-03-29 12:32 | NUR ---
Progress Note Pt still not feeling significantly uncomfortable with contractions despite Pitocin. States she passed mucous / blood clot. +FM. No heavy VB/LOF. Denies ESPARZA, visual changes, RUQ pain, sob, cp. VSS, mild HTN, normal HR, afebrile SVE: 3/50/-3; intact, cephalic. EFM: Cat I [place]: ctxs every 2-5min A/P: Failed IOL. Unable to achieve active labor despite cervical ripening followed by Pitocin. Unsafe to attempt AROM given high station. -Offered PLTCS and patient agrees to proceed in this fashion. -Preparations for the OR being made; anesthesia notified. Laurita Glover DO
[2019-03-29 12:50] LABS: HEMATOCRIT 35.4 % (36.0-47.0); MEAN CORPUSCULAR HEMOGLOBIN 30.2 pg (27.0-33.0); MEAN CORPUSCULAR HGB CONC 33.9 g/dl (32.0-36.5); MEAN CORPUSCULAR VOLUME 88.9 fl (80.0-96.0); PLATELET COUNT, AUTOMATED 179 10^3/uL (150-450); RED BLOOD COUNT 3.98 10^6/uL (4.00-5.40); WHITE BLOOD COUNT 14.5 10^3/uL (4.0-10.0)
[2019-03-29] MEDS ORDERED: MORPHINE PRES-FREE INJ 10 MG/10 ML VIAL (J2274) As Ordered ONE (13:21)
[2019-03-29] MEDS ORDERED: OXYTOCIN INJ 10 UNITS/ML VIAL (J2590) As Ordered ONE (14:25)
[2019-03-29] MEDS ORDERED: ONDANSETRON 4MG/2ML VIAL (J2405) As Ordered ONE (14:49)
[2019-03-29] MEDS ORDERED: dexameTHASONE 4 MG/ML 1ML VIAL (J1100) As Ordered ONE (14:49)
[2019-03-29] MEDS ORDERED: METOCLOPRAMIDE INJ 10MG/2ML VIAL (J2765) IV PRN (15:00)
[2019-03-29] MEDS ORDERED: NALOXONE INJ 0.4 MG/1 ML VIAL (J2310) IV PRN ×2 (15:00)
[2019-03-29] MEDS ORDERED: ONDANSETRON 4MG/2ML VIAL (J2405) IV PRN ×3 (15:00→16:00)
[2019-03-29] MEDS ORDERED: NALBUPHINE HCL 10 MG/ML AMP (J2300) IV PRN (15:00)
[2019-03-29] MEDS ORDERED: diphenhydrAMINE INJ 50MG/ML VIAL (J1200) IV PRN (15:00)
[2019-03-29] MEDS ORDERED: KETOROLAC 60 MG/2 ML VIAL (J1885) As Ordered ONE (15:16)
[2019-03-29] MEDS ORDERED: OXYTOCIN 30 UNITS IN 0.9% NaCl 500ML IV BAG (J2590) As Ordered ONE (15:40)
[2019-03-29] MEDS ORDERED: PROMETHAZINE 25 MG TAB PO PRN (15:45)
[2019-03-29] MEDS ORDERED: ACETAMINOPHEN 500 MG TAB PO PRN (15:45)
[2019-03-29] MEDS ORDERED: PERCOCET 5MG/325MG TAB PO PRN ×2 (15:45)
[2019-03-29] MEDS ORDERED: OXYTOCIN DRIP 30 UNITS in APPROPRIATE DILUENT 1 EA IV SCH (15:45)
[2019-03-29] MEDS ORDERED: RHOGAM 300 MCG (1500 IU) INJ (J2790) IM SCH (15:45)
[2019-03-29] MEDS ORDERED: MEASLES,MUMPS,RUBELLA VACCINE INJ (MMR-II) (90707) SC SCH (15:45)
[2019-03-29] MEDS ORDERED: fentaNYL 100 MCG/2 ML INJECTION (J3010) IV PRN (16:00)
--- NOTE | 2019-03-29 16:00 | NUR ---
Operative Note Date of procedure: 03/29/2019 Procedure: Primary low-transverse section Anesthesia: Spinal with Duramorph Preoperative diagnosis: 1. Chronic hypertension, oligohydramnios 2. Failed induction of labor Postoperative diagnosis: Same as preoperative Indication: Failed induction of labor Primary surgeon: João Glover D.O., Shaina Owen Compensation Director: Bina Cabrera DO Estimated blood loss:500 ml IV fluids administered: 1400 ml crystalloid Drains: [place] catheter. Urine output:150 ml data: Apgars 8 and 9. Birthweight 3140g, 6lbs 15oz. Preoperative/prophylactic antibiotics: Ancef 2 g IV (given within 30 minutes prior to surgical start time). Azithromycin 500mg IV x 1. Intraoperative findings: Normal uterus and bilateral adnexa/ovaries. Anterior placenta. Specimen(s): none Procedure: The patient was counseled and consented on the risks, benefits, indications and alternatives of the procedure. Informed consent was obtained and placed in the c villareal. She was taken to the operating room with an IV running. She was placed on the operating table. Spinal anesthesia was administered without any difficulty and found to be adequate. She was placed in the dorsal supine position with a leftward tilt. Sequential compression devices were placed on the lower extremities. A [place] catheter was placed under sterile conditions. She was sterilely prepped and draped. A surgical time out was performed per protocol. Spinal anesthesia was again found to be adequate. Using the 10 blade a Pfannenstiel incision was performed. The 10 blade was used to dissect down to the level of the rectus sheath fascia. The rectus sheath fas leslie was incised at the midline, and the fascial incision was extended with Stone scissors. Maria Elena clamps were used to grasp the superior and inferior aspect of the fascial incision and the rectus muscle bellies were dissected off sharply and bluntly. The midline was identified and the rectus muscle bellies were manually . The peritoneum was identified and clamped with hemostats and elevated. The peritoneum was then incised with Metzenbaum scissors. Entry into the intraperitoneal cavity was achieved. The peritoneal opening was extended with manual stretch . There was good visualization of both the bladder and the lower uterine segment. The Mobius retractor was placed. The vesicouterine peritoneum was dissected with Metzenbaum scissors and blunt dissection. Bladder retractor was repositioned. A low transverse uterine incision was made with a new 10 blade. The hysterotomy was extended with manual stretch. The amniotic sac was protruding and then artificially ruptured. Clear amniotic fluid was noted. The baby's head delivered through the hysterotomy with ease. The remainder of the body delivered with ease. The cord was doubly clamped and cut and the baby was handed off to awaiting care. See data above. Cord blood was obtained. The placenta was manually removed and noted to be fully intact. The uterus was kept in situ The intrauterine cavity was cleared of all clot and debris with a laparotomy sponge. The hysterotomy was closed with 0 Vicryl in running, locked fashion. A second imbricating closure was performed over the initial layer closure using 0 Vicryl. The hysterotomy was noted to be hemostatic. The posterior cul-de-sac was irrigated and cleared of all clot and debris. The paracolic gutters were cleared of all clot and debris with damp laparotomy spong es. The hysterotomy is reinspected and noted to be hemostatic. Sponge, needle and instrument counts were correct. The peritoneum was closed with 3-0 Vicryl in running fashion. The rectus muscle bellies were reapproximated with 3-0 Vicryl with a series of interrupted sutures. The rectus muscle bellies were noted to be hemostatic. The fascia was closed with 0 Vicryl in running fashion. Sponge, needle and instrument counts were again correct. The subcutaneous layer was irrigated. Small subcutaneous bleeders were cauterized with Bovie. The subcutaneous layer was reapproximated with 3-0 Vicryl in running fashion. The skin was closed with 3-0 Monocryl in subcuticular fashion. A bandage was placed over the closed incision. The final sponge, instrument and needle count was correct. She tolerated the entire procedure very well. She was transferred to the PACU in good and stable condition. Dr. João Glover D.O., F.A.C.O.G
[2019-03-29] MEDS: LR 1,000 ML IV SCH ×2 (16:50→23:33)
[2019-03-29] MEDS: DOCUSATE SODIUM 100 MG CAP PO SCH (21:22)
[2019-03-29] MEDS: KETOROLAC 30 MG/ML VIAL (J1885) IV SCH (21:23)
[2019-03-30] VITALS (7 sets, daily range): BP systolic 119–139; BP diastolic 66–87
[2019-03-30] MEDS: KETOROLAC 30 MG/ML VIAL (J1885) IV SCH ×2 (04:34→09:03)
[2019-03-30 06:54] LABS: HEMATOCRIT 27.4 % (36.0-47.0); MEAN CORPUSCULAR HEMOGLOBIN 30.8 pg (27.0-33.0); MEAN CORPUSCULAR HGB CONC 34.3 g/dl (32.0-36.5); MEAN CORPUSCULAR VOLUME 89.8 fl (80.0-96.0); PLATELET COUNT, AUTOMATED 151 10^3/uL (150-450); RED BLOOD COUNT 3.05 10^6/uL (4.00-5.40); WHITE BLOOD COUNT 14.8 10^3/uL (4.0-10.0)
--- NOTE | 2019-03-30 06:56 | NUR ---
POD#1 s/p PLTCS for failed IOL IOL for CHTN and oligohydramnios S: Pain well controlled, voiding spontaneously, tolerating regular diet, ambulating without difficulty, lochia decreasing/minimal. Breast feeding. Denies ESPARZA, visual changes, RUQ pain, sob, cp. O: Normotensive, normal HR, afebrile Abd: soft,nt,nd, fundus appropriately tender Ext: no calf tenderness Incision bandage not soaked through Labs: postop h/h = 9.4/27.4 A/P: POD#1. Recovering appropriately; HDS/af/good pain control -Routine postoperative care -Continue antihypertensive; Labetalol 50mg BID -Anticipate d/c to home tomorrow. Laurita Glover, DO
[2019-03-30 07:04] LABS: HEMOGLOBIN 9.4 g/dl (12.0-15.5)
[2019-03-30] MEDS: LR 1,000 ML IV SCH (07:33)
[2019-03-30] MEDS: DOCUSATE SODIUM 100 MG CAP PO SCH ×2 (09:02→21:05)
[2019-03-30] MEDS: PRENATAL VITAMINS CHEWABLE TABLET PO SCH (09:02)
[2019-03-30] MEDS: LABETALOL 100 MG TAB PO SCH ×2 (09:03→21:05)
[2019-03-30] MEDS ORDERED: IBUP80TA PO (11:46)
[2019-03-30] MEDS ORDERED: PERCOCET PO (11:46)
[2019-03-30] MEDS: IBUPROFEN 800 MG TAB PO SCH (17:37)
[2019-03-31] MEDS: IBUPROFEN 800 MG TAB PO SCH ×2 (02:29→09:51)
[2019-03-31 06:11] VITALS: BP 132/77
--- NOTE | 2019-03-31 07:00 | DS.PDOC ---
Discharge Summary General Date of Admission March 27, 2019 at 20:46 Date of Discharge 03/31/2019 Attending Physician: HALEY REED DO Discharge Summary PROCEDURES PERFORMED DURING STAY: Primary section. ADMITTING DIAGNOSES: 1. IUP at 37 weeks gestation. 2. Chronic Hypertension 3. board[place] line oligohydramnios DISCHARGE DIAGNOSES: 1. Day 2 postoperative. COMPLICATIONS/CHIEF COMPLAINT: Induction. HISTORY OF PRESENT ILLNESS: Patient is a 28-year-old female who is a now a who presented to L&D for IOL due to CHTN. DISCHARGE MEDICATIONS: Please see below. ALLERGIES: Please see below. PHYSICAL EXAMINATION ON DISCHARGE: VITAL SIGNS: Please see below. GENERAL: HEENT: NECK: CARDIOVASCULAR EXAMINATION: RESPIRATORY EXAMINATION: ABDOMINAL EXAMINATION: EXTREMITIES: SKIN: NEUROLOGICAL EXAMINATION: PSYCHIATRIC EXAMINATION: LABORATORY DATA: Please see below. ACTIVITY: As tolerated. DIET: regular DISCHARGE INSTRUCTIONS: 1. . DISCHARGE CONDITION: Stable. Vital Signs/I&Os Vital Signs Date Time Temp Pulse Resp B/P (MAP) Pulse Ox O2 Delivery O2 Flow Rate FiO2 03/31/19 06:11 99.2 68 16 132/77 (95) 03/30/19 02:12 100 Discharge Medications Scheduled Docusate Sodium (Colace) 100 Mg Capsule, 1 CAP PO DAILY, (Reported) Ferrous Sulfate (Ferrous Sulfate) 325 Mg Tablet.dr, 1 TAB PO BID, (Reported) Ibuprofen (Ibuprofen) 800 Mg Tablet, 800 MG PO Q8H Labetalol HCl (Labetalol HCl) 100 Mg Tablet, 0.5 TAB PO BID, (Reported) Pnv No.95/Ferrous Fum/Folic AC ( Tablet) 1 Tab Tab, 2 TAB PO DAILY, (Reported) Scheduled PRN Oxycodone/Acetaminophen (Oxycodone-Acetaminophen 5-325) 1 Each Tablet, 1 TAB PO Q4HP PRN for PAIN Miscellaneous Medications Acetaminophen (Mapap) 500 Mg Tablet, 1,000 MG PO, (Reported) Allergies Coded Allergies: No Known Allergies (Verified , 03/27/19) MARGARETTE ONEIL CNM Mar 31, 2019 07:00
[2019-03-31] MEDS: DOCUSATE SODIUM 100 MG CAP PO SCH (09:50)
[2019-03-31] MEDS: PRENATAL VITAMINS CHEWABLE TABLET PO SCH (09:50)
[2019-03-31] MEDS: LABETALOL 100 MG TAB PO SCH (09:51)
[2019-03-31 10:00] VITALS: BP 139/84
== END 2019-03-31 10:30 | disposition home or self-care (01) | DRG 787 ==
LOC: M LDI 20:46 → M OBS 03-29 17:00
PROVIDERS: ADMIT Advanced Practice Midwife; ATTEND Advanced Practice Midwife
PROC: 3E0P7GC Introduction of Other Therapeutic Substance into Female Reproductive, Via Natural or Artificial Opening (ICD-10-PCS; 2019-03-27)
PROC: 10D00Z1 Extraction of Products of Conception, Low, Open Approach (ICD-10-PCS; principal; 2019-03-29 14:00)
DX: O10.02 Pre-existing essential hypertension complicating childbirth (principal); O41.03X0 Oligohydramnios, third trimester, not applicable or unspecified; O61.0 Failed medical induction of labor; Z3A.37 37 weeks gestation of pregnancy; Z37.0 Single live birth

== ENCOUNTER → 2019-07-21 | Outpatient (REF) | payer OTHER ==
[~2019-07-21] MED LIST changes: +IBUP80TA PO; +MAPA500T2 PO; +PERCOCET PO
== END ==
LOC: M LAB REF 13:50
PROVIDERS: ATTEND Obstetrics & Gynecology
DX: Z12.4 Encounter for screening for malignant neoplasm of cervix (principal)

== ENCOUNTER → 2020-01-11 | Outpatient (REF) | payer OTHER ==
[2020-01-11 10:44] LABS: BASO # 0.1 10^3/uL (0.0-0.2); BASO % 0.9 % (0.0-1.0); EOS # 0.2 10^3/uL (0.0-0.5); EOS % 2.6 % (0.0-3.0); HEMATOCRIT 41.2 % (36.0-47.0); HEMOGLOBIN 13.8 g/dl (12.0-15.5); LYMPH # 2.4 10^3/uL (1.5-5.0); MEAN CORPUSCULAR HEMOGLOBIN 28.4 pg (27.0-33.0); MEAN CORPUSCULAR HGB CONC 33.5 g/dl (32.0-36.5); MEAN CORPUSCULAR VOLUME 84.8 fl (80.0-96.0); MONO # 0.3 10^3/uL (0.0-0.8); MONO % 5.5 % (0.0-5.0); NEUTROPHILS % 50.8 % (36.0-66.0); PLATELET COUNT, AUTOMATED 269 10^3/uL (150-450); RED BLOOD COUNT 4.86 10^6/uL (4.00-5.40); WHITE BLOOD COUNT 5.9 10^3/uL (4.0-10.0)
[2020-01-11 10:58] LABS: ALT/SGPT 17 U/L (12-78); BILIRUBIN,TOTAL 0.3 MG/DL (0.2-1.0); BLOOD UREA NITROGEN 14 MG/DL (7-18); CALCIUM LEVEL 8.9 MG/DL (8.5-10.1); CARBON DIOXIDE LEVEL 24 MEQ/L (21-32); CHLORIDE LEVEL 108 MEQ/L (98-107); CHOLESTEROL LEVEL 154 MG/DL (<200); CHOLESTEROL RISK RATIO 3.276 (<5); CREATININE FOR GFR 0.92 MG/DL (0.55-1.30); FREE T4 0.93 NG/DL (0.76-1.46); GLOMERULAR FILTRATION RATE > 60.0 (>60); GLUCOSE, FASTING 106 MG/DL (70-100); HDL CHOLESTEROL 47 MG/DL (>40); LDL CHOLESTEROL 92 MG/DL (<100); NON-HDL-C 107 MG/DL; POTASSIUM SERUM 3.8 MEQ/L (3.5-5.1); SODIUM LEVEL 139 MEQ/L (136-145); TOTAL PROTEIN 7.7 GM/DL (6.4-8.2); TRIGLYCERIDES LEVEL 76 MG/DL (<150)
[2020-01-11 10:59] LABS: TOTAL 25(OH) VITAMIN D 25.4 NG/ML (30.0-100.0)
== END ==
LOC: M LABDRAW1 07:48
PROVIDERS: ATTEND Physician Assistant
DX: Z13.21 Encounter for screening for nutritional disorder (principal); I10 Essential (primary) hypertension; Z98.890 Other specified postprocedural states

== ENCOUNTER → 2020-07-29 | Outpatient (CLI) | payer OTHER ==
[2020-07-29 14:19] LABS: APPEARANCE, URINE CLEAR (CLEAR); BACTERIA, URINE AUTO 1+ (NEGATIVE); BILIRUBIN, URINE AUTO NEGATIVE (NEGATIVE); BLOOD, URINE BLOOD NEGATIVE (NEGATIVE); COLOR, URINE YELLOW (YELLOW); GLUCOSE, URINE (UA) AUTO NEGATIVE (NEGATIVE); KETONE, URINE AUTO NEGATIVE (NEGATIVE); LEUKOCYTE ESTERASE, URINE AUTO NEGATIVE (NEGATIVE); NITRITE, URINE AUTO NEGATIVE (NEGATIVE); PROTEIN, URINE AUTO NEGATIVE (NEGATIVE); RBC, URINE AUTO 0 /HPF (0-3); SPECIFIC GRAVITY URINE AUTO 1.012 (1.002-1.035); SQUAMOUS EPITHELIAL CELL UR AU 2 /HPF (0-6); UROBILINOGEN, URINE AUTO 0.2 mg/dL (0.0-2.0); WBC, URINE AUTO 0 /HPF (0-3)
[2020-07-29 14:39] LABS: ALBUMIN 3.9 GM/DL (3.2-5.2); BLOOD UREA NITROGEN 17 MG/DL (7-18); CALCIUM LEVEL 8.9 MG/DL (8.5-10.1); CARBON DIOXIDE LEVEL 27 MEQ/L (21-32); CHLORIDE LEVEL 106 MEQ/L (98-107); CREATININE FOR GFR 0.82 MG/DL (0.55-1.30); GLOMERULAR FILTRATION RATE > 60.0 (>60); GLUCOSE, FASTING 80 MG/DL (70-100); PHOSPHORUS LEVEL 3.4 MG/DL (2.5-4.9); SODIUM LEVEL 138 MEQ/L (136-145)
== END ==
LOC: M PLALAB 09:31
PROVIDERS: ATTEND Physician Assistant Medical
DX: N13.732 Vesicoureteral-reflux with reflux nephropathy with hydroureter, bilateral (principal)

== ENCOUNTER → 2021-02-15 | Outpatient (REF) | payer OTHER ==
[~2021-02-15] MED LIST changes: -LABE100T36 PO; +LABE100T4 PO; +LABE100T5 PO; -LABE10TAB PO; -LISI-542 PO; +LISI-898 PO
[2021-02-15 18:02] LABS: HEMATOCRIT 36.2 % (36.0-47.0); HEMOGLOBIN 11.9 g/dl (12.0-15.5); MEAN CORPUSCULAR HEMOGLOBIN 28.5 pg (27.0-33.0); MEAN CORPUSCULAR HGB CONC 32.9 g/dl (32.0-36.5); MEAN CORPUSCULAR VOLUME 86.8 fl (80.0-96.0); PLATELET COUNT, AUTOMATED 291 10^3/uL (150-450); RED BLOOD COUNT 4.17 10^6/uL (4.00-5.40); WHITE BLOOD COUNT 10.9 10^3/uL (4.0-10.0)
[2021-02-15 18:07] LABS: APPEARANCE, URINE CLOUDY (CLEAR); BACTERIA, URINE AUTO 1+ (NEGATIVE); BILIRUBIN, URINE AUTO NEGATIVE (NEGATIVE); BLOOD, URINE BLOOD NEGATIVE (NEGATIVE); COLOR, URINE YELLOW (YELLOW); GLUCOSE, URINE (UA) AUTO NEGATIVE (NEGATIVE); KETONE, URINE AUTO NEGATIVE (NEGATIVE); LEUKOCYTE ESTERASE, URINE AUTO NEGATIVE (NEGATIVE); MUCUS, URINE SMALL (NEGATIVE); NITRITE, URINE AUTO NEGATIVE (NEGATIVE); PROTEIN, URINE AUTO NEGATIVE (NEGATIVE); RBC, URINE AUTO 0 /HPF (0-3); SPECIFIC GRAVITY URINE AUTO 1.021 (1.002-1.035); SQUAMOUS EPITHELIAL CELL UR AU 4 /HPF (0-6); UROBILINOGEN, URINE AUTO 0.2 mg/dL (0.0-2.0); WBC, URINE AUTO 6 /HPF (0-3)
[2021-02-15 18:26] LABS: TOTAL PROTEIN,RANDOM URINE 18.3 MG/DL (0.0-12.0)
[2021-02-15 18:38] LABS: ALBUMIN 3.9 GM/DL (3.2-5.2); ALT/SGPT 21 U/L (12-78); BILIRUBIN,TOTAL 0.2 MG/DL (0.2-1.0); BLOOD UREA NITROGEN 17 MG/DL (7-18); CALCIUM LEVEL 8.8 MG/DL (8.5-10.1); CARBON DIOXIDE LEVEL 25 MEQ/L (21-32); CHLORIDE LEVEL 104 MEQ/L (98-107); CREATININE FOR GFR 0.73 MG/DL (0.55-1.30); GLOMERULAR FILTRATION RATE > 60.0 (>60); GLUCOSE, FASTING 83 MG/DL (70-100); PHOSPHORUS LEVEL 3.6 MG/DL (2.5-4.9); POTASSIUM SERUM 4.1 MEQ/L (3.5-5.1); SODIUM LEVEL 136 MEQ/L (136-145); TOTAL PROTEIN 7.4 GM/DL (6.4-8.2)
== END ==
LOC: M PLALAB 17:11
PROVIDERS: ATTEND Physician Assistant Medical
DX: N13.732 Vesicoureteral-reflux with reflux nephropathy with hydroureter, bilateral (principal)

== ENCOUNTER → 2021-03-03 | Outpatient (REF) | payer OTHER ==
[2021-03-03 12:06] LABS: HEMATOCRIT 36.6 % (36.0-47.0); HEMOGLOBIN 12.1 g/dl (12.0-15.5); MEAN CORPUSCULAR HEMOGLOBIN 28.6 pg (27.0-33.0); MEAN CORPUSCULAR HGB CONC 33.1 g/dl (32.0-36.5); MEAN CORPUSCULAR VOLUME 86.5 fl (80.0-96.0); PLATELET COUNT, AUTOMATED 258 10^3/uL (150-450); RED BLOOD COUNT 4.23 10^6/uL (4.00-5.40); WHITE BLOOD COUNT 8.8 10^3/uL (4.0-10.0)
[2021-03-03 12:34] LABS: TOTAL PROTEIN,RANDOM URINE 12.9 MG/DL (0.0-12.0)
[2021-03-03 12:38] LABS: ALT/SGPT 19 U/L (12-78); BILIRUBIN,TOTAL 0.4 MG/DL (0.2-1.0); CREATININE FOR GFR 0.63 MG/DL (0.55-1.30); GLOMERULAR FILTRATION RATE > 60.0 (>60); LDH LACTATE DEHYDROGENASE 117 U/L (84-246); URIC ACID 2.9 MG/DL (2.6-6.0)
[2021-03-03 13:26] LABS: HIV 1&2 SCREEN CENTAUR NEGATIVE (NEGATIVE)
== END ==
LOC: M PLALAB 10:31
PROVIDERS: ATTEND Advanced Practice Midwife
DX: O10.011 Pre-existing essential hypertension complicating pregnancy, first trimester (principal)

== ENCOUNTER → 2021-03-31 | Outpatient (REF) | payer OTHER | LOC: M SFHCWAGY 17:08 | PROVIDERS: ATTEND Advanced Practice Midwife | DX: O10.011 Pre-existing essential hypertension complicating pregnancy, first trimester (principal) ==

== ENCOUNTER → 2021-05-11 | Outpatient (CLI) | payer OTHER ==
--- NOTE | 2021-05-12 00:05 | REP ---
INDICATION: ANATOMY COMPARISON: None. TECHNIQUE: Transabdominal obstetrical ultrasound with color Doppler evaluation. FINDINGS: Examination demonstrates a single live intrauterine in transverse presentation. motion is identified by technologist. Contraction noted throughout the examination limits evaluation and marginal versus complete previa cannot be determined. The placenta is otherwise noted anteriorly and grade 0. Amniotic fluid volume is normal. Cervix measures 5.6 cm in length and appears closed.. Selected gestational age by current measurements: 19 weeks 4 days with HENRIK 10/01/2021. FHR equals 157 beats per minute. Estimated weight 328 grams (75thpercentile). Anatomical assessment demonstrates normal structures including cranium, choroid plexus, cavum, cerebellum/posterior fossa, facial features, lungs, four-chamber heart, diaphragm, stomach, cord insertion/three-vessel cord, kidneys/bladder, and upper extremities. Limited evaluation of the cardiac ventricular outflow tracts, spine and lower extremities due to positioning. IMPRESSION: Single live intrauterine in transverse lie demonstrating appropriate interval growth. Marginal versus complete placenta previa. Anatomical limitations as noted above may warrant follow-up examination. <Electronically signed by Dennis Magaña > 05/12/21 0002
== END ==
LOC: M RAD 14:15
PROVIDERS: ATTEND Obstetrics & Gynecology
DX: Z36.3 Encounter for antenatal screening for malformations (principal); O10.019 Pre-existing essential hypertension complicating pregnancy, unspecified trimester; Z3A.19 19 weeks gestation of pregnancy

== ENCOUNTER → 2021-05-16 | Outpatient (REF) | payer OTHER ==
[2021-05-17 15:48] LABS: APPEARANCE, URINE HAZY (CLEAR); BACTERIA, URINE AUTO 1+ (NEGATIVE); BILIRUBIN, URINE AUTO NEGATIVE (NEGATIVE); BLOOD, URINE BLOOD NEGATIVE (NEGATIVE); COLOR, URINE YELLOW (YELLOW); GLUCOSE, URINE (UA) AUTO NEGATIVE (NEGATIVE); KETONE, URINE AUTO NEGATIVE (NEGATIVE); LEUKOCYTE ESTERASE, URINE AUTO NEGATIVE (NEGATIVE); MUCUS, URINE SMALL (NEGATIVE); NITRITE, URINE AUTO NEGATIVE (NEGATIVE); PROTEIN, URINE AUTO 1+ mg/dL (NEGATIVE); RBC, URINE AUTO 0 /HPF (0-3); SPECIFIC GRAVITY URINE AUTO 1.024 (1.002-1.035); SQUAMOUS EPITHELIAL CELL UR AU 2 /HPF (0-6); UROBILINOGEN, URINE AUTO 0.2 mg/dL (0.0-2.0); WBC, URINE AUTO 2 /HPF (0-3)
== END ==
LOC: M LAB REF 12:41
PROVIDERS: ATTEND Physician Assistant Medical
DX: R30.0 Dysuria (principal)

== ENCOUNTER → 2021-06-09 | Outpatient (CLI) | payer OTHER ==
--- NOTE | 2021-06-09 09:33 | REP ---
INDICATION: F/U ANATOMY/PLACENTA PREVIA VS MARGINAL. FOLLOW-UP VENTRICULAR OUTFLOW TRACTS, SPINE, AND LOWER EXTREMITIES COMPARISON: 05/11/2021 TECHNIQUE: Transabdominal scanning FINDINGS: Multiple ultrasonographic images of the gravid uterus shows a single living intrauterine gestation in the breech presentation. Doppler interrogation of the heart shows a heart rate of 161 beats per minute. The placenta is anterior and not low-lying. The cervix measures 4.6 cm in length and is closed. The subjective amniotic fluid volume is within normal limits. BPD: 5.7 cm 23 weeks 3 days HC: 21.5 cm 23 weeks 4 days AC: 18.8 cm 23 weeks 4 days FL: 4.1 cm 23 weeks 1 day The estimated weight is 589 g which is at the 82nd percentile for a 22 week 4 day gestational age. The ventricular outflow tracts, spine, and lower extremities were all seen to be unremarkable. IMPRESSION: Single living intrauterine gestation as described above with an estimated gestational age of 23 weeks 3 days via composite criteria and an estimated date of delivery of 10/03/2021 by today's exam. No anomalies were detected as described above. <Electronically signed by Yuri Lala > 06/09/21 [id number]
== END ==
LOC: M WHC 06:51
PROVIDERS: ATTEND Obstetrics & Gynecology
DX: O44.02 Complete placenta previa NOS or without hemorrhage, second trimester (principal); Z3A.22 22 weeks gestation of pregnancy

== ENCOUNTER → 2021-07-03 | Outpatient (REF) | payer OTHER | LOC: M LAB REF 09:10 | PROVIDERS: ATTEND Advanced Practice Midwife | DX: O34.211 Maternal care for low transverse scar from previous cesarean delivery (principal) ==

== ENCOUNTER → 2021-07-14 | Outpatient (CLI) | payer OTHER | LOC: M LAB 07:13 | PROVIDERS: ATTEND Obstetrics & Gynecology | DX: R73.09 Other abnormal glucose (principal) ==

== ENCOUNTER → 2021-08-25 | Outpatient (CLI) | payer OTHER ==
--- NOTE | 2021-08-25 11:08 | REP ---
INDICATION: HTN. COMPARISON: Ob ultrasound, 06/09/2021 TECHNIQUE: Ultrasound images of the gravid uterus were obtained. FINDINGS: 3, Para 1 LMP 01/02/2021 = 33 weeks 4 days, HENRIK(LMP) = 10/09/2021 Expected GA/1st sono = 34 weeks 5 days, HENRIK (expected) = 10/01/2021 Today's sono findings = 35 weeks 4 days, HENRIK (today's sono) = 09/25/2021 Number: 1 Position: Cephalic Heart Rate: 144 BPM S/D Ratio: 2.76 Placental Position: Anterior Amniotic Fluid Volume: Normal ROBEL: 9.5 ROBEL: Normal Range: 8.2-24.7 cm MEASUREMENTS: BPD: 8.8 cm, consistent with 35 weeks 4 days, mean gestational age. HC: 31.7 cm, consistent with 35 weeks 5 days, mean gestational age. AC: 31.6 cm consistent with 35 weeks 4 days, mean gestational age. FL: 6.9 cm, consistent with 35 weeks 3 days, mean gestational age. Estimated Weight: 2698 g grams 97 percentile The following structures are visualized today or have been previously visualized and are unremarkable: Cranium, cavum, cerebellum, posterior fossa-cisterna magna, choroid plexus, midline falx, lateral ventricles, orbits, face-profile, face-lips/mouth, neck, 4-chamber heart, RVOT, LVOT, diaphragm, stomach, kidneys, bladder, abdominal wall, cord insertion, umbilical arteries, 3-vessel cord, color Doppler, spine and upper and lower extremities. IMPRESSION: 1. Single living intrauterine of 35 weeks 4 days, mean gestational age. The ROBEL is 9.5. The growth percentile is 97% 2. There are no anomalies detected. <Electronically signed by Gil Espino > 08/25/21 1826
== END ==
LOC: M RAD 08:18
PROVIDERS: ATTEND Obstetrics & Gynecology
DX: O10.913 Unspecified pre-existing hypertension complicating pregnancy, third trimester (principal); Z3A.35 35 weeks gestation of pregnancy

== ENCOUNTER 2021-09-01 08:35 | Outpatient (CLI) | payer OTHER ==
[~2021-09-01] VITALS: Ht 167.6 cm; Wt 102.1 kg
[2021-09-01] MEDS ORDERED: ASPI81TA26 PO (08:50)
[2021-09-01] MEDS ORDERED: OYST1TAB PO (08:50)
[2021-09-01] MEDS ORDERED: LABE100T5 PO (08:50)
[2021-09-01] MEDS ORDERED: FERR325T3 PO (08:50)
[2021-09-01 08:51] VITALS: BP 174/114
[2021-09-01] MEDS ORDERED: HOME MED LIST COMPLETE! XX SCH (08:55)
[2021-09-01] MEDS ORDERED: BETAMETHASONE SOLUSPAN 6MG/ML 5ML VIAL (J0702 PER 3MG) IM SCH (09:00)
[2021-09-01 09:12] VITALS: BP 136/90
--- NOTE | 2021-09-01 11:52 | IPN ---
PROGRESS NOTE DATE: 09/01/2021 SUBJECTIVE: Lydia is a 30-year-old 3 para 1-0-1-1 at 34 and 4/7th weeks gestation, EDC of 10/09/2021. She presents to Labor and Delivery following a routine appointment where she underwent antepartal testing due to chronic hypertension. It was noted that she had borderline oligohydramnios with an ROBEL of 6.5 cm. She denies headache, blurred vision, epigastric pain and right upper quadrant discomfort. She denies contractions, vaginal bleeding and leakage of fluid. The fetus has been active. care initiated at [facility]. In the first trimester her course was complicated by a prior section with a planned repeat, chronic hypertension that has been well-managed with Labetalol 100 mg p.o. b.i.d. History of double reflux ureteral surgery, borderline diabetes. She did pass her three hour glucose tolerance test and did undergo two weeks of fingerstick log with normal results. OBSTETRIC HISTORY: #1, spontaneous miscarriage, #2, March 2019, 37 weeks, 2 days, 6 pound, 15 ounce female, primary section due to failed induction following induction of labor due to chronic hypertension. OBSTETRIC LABS: AB positive, antibody screen negative, syphilis negative, gonorrhea and chlamydia negative, hepatitis B negative, hepatitis C negative. HIV negative. Rubella immune. Gestational diabetic screening abnormal at 142. Three hour glucose tolerance test normal. Fasting 95. One hour 192, two hour 154, and three hour 98. GBS was unknown at this time. PAST MEDICAL HISTORY: Chronic hypertension, childhood varicella, double reflux kidneys, vitamin D deficiency and exercise induced asthma. PAST SURGICAL HISTORY: section, ureter repair as a child. FAMILY HISTORY: Asthma, dermoid tumors. SOCIAL HISTORY: The patient is . 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 She is not a smoker. Denies alcohol and drug use. No history of sexually transmitted infections. She denies a history of abuse, physical, sexual and emotional. ALLERGIES: No known drug allergies. CURRENT MEDICATIONS: vitamin and Labetalol 100 mg p.o. b.i.d. OBJECTIVE: Patient is alert and oriented x3. She was not placed on a monitoring as she underwent NST and a BPP in the office and returned a score of 10 out of 10 today. Betamethasone injection #1 administered. PLAN: Discharge the patient home. She is to return to Labor and Delivery in 24 hours for Betamethasone injection #2. The potential for early delivery due to oligohydramnios was reviewed with her in her office visit with Dr. Glover. The danger signs and access to care have been reviewed here in Labor and Delivery with her. I also did provide her with a note to remain out of work for the duration of her . All of the patient's questions were answered and she will return tomorrow.
[2021-09-02] MEDS ORDERED: NOXI1TAB PO (09:48)
[2021-09-07] MEDS ORDERED: COLA100C5 PO (13:11)
== END 2021-09-01 09:30 | disposition home or self-care (01) ==
LOC: M LDO 08:35
PROVIDERS: ATTEND Advanced Practice Midwife
DX: O41.03X0 Oligohydramnios, third trimester, not applicable or unspecified (principal); Z3A.34 34 weeks gestation of pregnancy
CPT/HCPCS: 96372; G0378; G0463; J0702

== ENCOUNTER 2021-09-02 09:10 | Outpatient (CLI) | payer OTHER ==
[~2021-09-02] VITALS: Ht 165.1 cm; Wt 101.2 kg
[~2021-09-02 09:10] MED LIST changes: +ASPI81TA26 PO; +OYST1TAB PO
[2021-09-02 09:31] VITALS: BP 118/70
[2021-09-02] MEDS ORDERED: BETAMETHASONE SOLUSPAN 6MG/ML 5ML VIAL (J0702 PER 3MG) IM ONE (09:45)
[2021-09-02] MEDS ORDERED: NOXI1TAB PO (09:48)
[2021-09-02] MEDS ORDERED: HOME MED LIST COMPLETE! XX SCH (09:50)
[2021-09-02 10:33] VITALS: BP 122/74
--- NOTE | 2021-09-02 11:24 | IPNPDOC ---
Obstetrical Progress Note Date of Service Sep 02, 2021 Subjective S: Lydia is a 30 y.o. at 34 5/7 as established by first trimester ultrasound who presents to labor and delivery triage for second dose of betamethasone and evaluation of possible oligohydramnios as she was noted to have lower limits of normal amniotic fluid volume in the office yesterday. Her has been complicated by a history of chronic hypertension and previous cesarian section. She reports good movement and denies any loss of fluid, vaginal bleeding, or regular uterine contractions. No ESPARZA, visual changes, RUQ pain, sob, cp. O: See Vitals (normotensive, normal HR, afebrile) FHR 140 with + accels, no decels, +mod variability, reactive NST Limited bedside ultrasound reveals MVP of 4.2cm and ROBEL of 6.2cm, cephalic presentation General: alert and oriented x 3 Respiratory: breathing comfortably on room air, no use of accessory muscles. Abdomen: soft and nontender, gravid A: IUP at 34 5/7 with lower limit of normal AFV and chronic hypertension, second dose of betamethasone complete. Continued concern for developing oligohydramnios. Currently with reassuring maternal and status. P: Return as outpatient Saturday for repeat NST/ROBEL. Counselled patient on risk/benefit of planning earlier repeat section no later than 37 weeks Continue with labetalol at 100 mg PO BID Reviewed [facility] and third trimester/pre-e warning signs. Objective Vital Signs Date Time Temp Pulse Resp B/P (MAP) Pulse Ox O2 Delivery O2 Flow Rate FiO2 09/02/21 10:33 97.5 78 18 122/74 (90) 09/02/21 09:31 97 HALEY REED DO Sep 02, 2021 11:24
== END 2021-09-02 11:05 | disposition home or self-care (01) ==
LOC: M LDO 09:10
PROVIDERS: ATTEND Obstetrics & Gynecology
DX: O41.03X0 Oligohydramnios, third trimester, not applicable or unspecified (principal); Z3A.34 34 weeks gestation of pregnancy
CPT/HCPCS: 59025; 76815; G0378; G0463; J0702

== ENCOUNTER → 2021-09-04 | Outpatient (CLI) | payer OTHER ==
[~2021-09-04] MED LIST changes: +NOXI1TAB PO
[2021-09-04 15:15] LABS: HEMATOCRIT 32.9 % (36.0-47.0); HEMOGLOBIN 10.7 g/dl (12.0-15.5); MEAN CORPUSCULAR HEMOGLOBIN 28.3 pg (27.0-33.0); MEAN CORPUSCULAR HGB CONC 32.5 g/dl (32.0-36.5); PLATELET COUNT, AUTOMATED 243 10^3/uL (150-450); RED BLOOD COUNT 3.78 10^6/uL (4.00-5.40); WHITE BLOOD COUNT 10.5 10^3/uL (4.0-10.0)
[2021-09-04 15:24] LABS: TOTAL PROTEIN,RANDOM URINE 40.8 MG/DL (0.0-12.0)
[2021-09-04 15:26] LABS: ALBUMIN 2.8 GM/DL (3.2-5.2); ALT/SGPT 23 U/L (12-78); BILIRUBIN,TOTAL 0.3 MG/DL (0.2-1.0); BLOOD UREA NITROGEN 10 MG/DL (7-18); CALCIUM LEVEL 8.9 MG/DL (8.5-10.1); CARBON DIOXIDE LEVEL 20 MEQ/L (21-32); CHLORIDE LEVEL 110 MEQ/L (98-107); CREATININE FOR GFR 0.69 MG/DL (0.55-1.30); GLOMERULAR FILTRATION RATE > 60.0 (>60); GLUCOSE, FASTING 75 MG/DL (70-100); POTASSIUM SERUM 3.6 MEQ/L (3.5-5.1); SODIUM LEVEL 139 MEQ/L (136-145); TOTAL PROTEIN 6.8 GM/DL (6.4-8.2)
== END ==
LOC: M WUC 13:21
PROVIDERS: ATTEND Obstetrics & Gynecology
DX: O10.913 Unspecified pre-existing hypertension complicating pregnancy, third trimester (principal)

== ENCOUNTER → 2021-09-07 | Outpatient (CLI) | payer OTHER ==
--- NOTE | 2021-09-07 12:51 | REP ---
INDICATION: BPP GROWTH HYPERTENSION. COMPARISON: 08/25/2021, 06/09/2021 TECHNIQUE: BPP, EFW, umbilical artery Doppler, ROBEL. FINDINGS: Today's study shows a single intrauterine gestation in cephalic presentation. There is an anterior grade 2 placenta without previa or abruption. On today's study the amniotic fluid volume is ROBEL 0.0. This represents anhydramnios. Cervix is obscured by skull shadowing. Mid cord umbilical artery Doppler shows an SD ratio 2.08 (1.66-3.56) with normal resistive index of 0.52. Diastolic flow was maintained throughout. Anatomy screen was neither requested or performed. biometry: BPD 9.1 cm, 36 weeks 5 day HC 32 cm, 36 weeks 0 day AC 31.3 cm, 35 weeks 1 day FL 7 cm, 35 weeks 5 day HL 6.3 cm, 36 weeks 3 day. Average ultrasound age today 36 weeks 0 day giving EDC 10/05/2021 by today's study. By initial ultrasound EDC 10/01/2021, by LMP 10/09/2021. measurement ratios are all in the normal range. Estimated weight 2716 g (5 lb 15 oz). This is 54th percentile for dating based on LMP. Biophysical profile: Breathing 2 Movement 2 AFV 0 Tone 2 IMPRESSION: 1. Single intrauterine gestation in vertex position with anterior grade 2 placenta without previa or abruption. heart rate 163 and regular. 2. Size and dates at 36 weeks today the with estimated weight 54th percentile for 35 weeks 3 days (based on LMP). This indicates normal interval growth. See data above. 3. Mid cord umbilical artery Doppler shows normal SD ratio, diastolic flow maintained throughout. 4. Biophysical profile score 6/8. 5. Interval development of anhydramnios. Political Reporter states the clinic is aware of this finding. <Electronically signed by Ronak Babcock > 09/07/21 [id number]
--- NOTE | 2021-09-07 13:46 | REP ---
INDICATION: BPP GROWTH HYPERTENSION. COMPARISON: None. FINDINGS: See details under biophysical profile order and report. IMPRESSION: See dictation under biophysical profile order and report. <Electronically signed by Ronak Babcock > 09/07/21 [id number]
== END ==
LOC: M WHC 10:27
PROVIDERS: ATTEND Obstetrics & Gynecology
DX: Z36.2 Encounter for other antenatal screening follow-up (principal); O10.919 Unspecified pre-existing hypertension complicating pregnancy, unspecified trimester; Z3A.36 36 weeks gestation of pregnancy

== ENCOUNTER → 2021-12-26 | Outpatient (REF) | payer OTHER ==
[~2021-12-26] MED LIST changes: -LISI-898 PO; +LISI5TAB11 PO
== END ==
LOC: M SFHCWAGY 15:49
PROVIDERS: ATTEND Obstetrics & Gynecology
DX: Z12.4 Encounter for screening for malignant neoplasm of cervix (principal)

== ENCOUNTER → 2022-03-07 | Outpatient (REF) | payer OTHER | LOC: M LAB REF 12:11 | PROVIDERS: ATTEND Physician Assistant Medical | DX: J06.9 Acute upper respiratory infection, unspecified (principal) ==

== ENCOUNTER → 2022-04-09 | Outpatient (REF) | payer OTHER ==
[2022-04-09 16:23] LABS: APPEARANCE, URINE CLEAR (CLEAR); BACTERIA, URINE AUTO NEGATIVE (NEGATIVE); BILIRUBIN, URINE AUTO NEGATIVE (NEGATIVE); BLOOD, URINE BLOOD NEGATIVE (NEGATIVE); COLOR, URINE YELLOW (YELLOW); GLUCOSE, URINE (UA) AUTO NEGATIVE (NEGATIVE); KETONE, URINE AUTO NEGATIVE (NEGATIVE); LEUKOCYTE ESTERASE, URINE AUTO NEGATIVE (NEGATIVE); NITRITE, URINE AUTO NEGATIVE (NEGATIVE); PROTEIN, URINE AUTO NEGATIVE (NEGATIVE); RBC, URINE AUTO 1 /HPF (0-3); SQUAMOUS EPITHELIAL CELL UR AU 0 /HPF (0-6); UROBILINOGEN, URINE AUTO 0.2 mg/dL (0.0-2.0); WBC, URINE AUTO 0 /HPF (0-3)
== END ==
LOC: M LAB REF 15:44
PROVIDERS: ATTEND Physician Assistant Medical
DX: N39.0 Urinary tract infection, site not specified (principal)

== ENCOUNTER → 2022-06-19 | Outpatient (CLI) | payer OTHER ==
[~2022-06-19] MED LIST changes: -LABE100T4 PO; -LABE100T5 PO; +LABE100T6 PO; +LABE100T71 PO
[2022-06-19 18:02] LABS: ALBUMIN 4.2 GM/DL (3.2-5.2); ALT/SGPT 17 U/L (12-78); BILIRUBIN,TOTAL 0.3 MG/DL (0.2-1.0); BLOOD UREA NITROGEN 16 MG/DL (7-18); CALCIUM LEVEL 8.7 MG/DL (8.5-10.1); CARBON DIOXIDE LEVEL 25 MEQ/L (21-32); CHLORIDE LEVEL 106 MEQ/L (98-107); CHOLESTEROL LEVEL 180 MG/DL (<200); CHOLESTEROL RISK RATIO 3.272 (<5); CREATININE FOR GFR 0.84 MG/DL (0.55-1.30); GLOMERULAR FILTRATION RATE > 60.0 (>60); GLUCOSE, FASTING 95 MG/DL (70-100); HDL CHOLESTEROL 55 MG/DL (>40); LDL CHOLESTEROL 100 MG/DL (<100); NON-HDL-C 125 MG/DL; POTASSIUM SERUM 3.7 MEQ/L (3.5-5.1); SODIUM LEVEL 136 MEQ/L (136-145); TOTAL PROTEIN 7.8 GM/DL (6.4-8.2); TRIGLYCERIDES LEVEL 124 MG/DL (<150)
[2022-06-19 18:14] LABS: HEMOGLOBIN A1c 5.1 %
== END ==
LOC: M PLALAB 15:02
PROVIDERS: ATTEND Pediatrics
DX: E78.5 Hyperlipidemia, unspecified (principal); Z86.32 Personal history of gestational diabetes

== ENCOUNTER → 2022-07-05 | Outpatient (REF) | LOC: M LABSMTC 10:45 | PROVIDERS: ATTEND Family Medicine | DX: Z20.822 Contact with and (suspected) exposure to COVID-19 (principal) ==

== ENCOUNTER → 2022-10-03 | Outpatient (REF) | payer OTHER ==
[2022-10-03 17:34] LABS: APPEARANCE, URINE MANUAL CLEAR (CLEAR); COLOR, URINE MANUAL LT YELLOW (YELLOW)
[2022-10-03 17:35] LABS: BILIRUBIN, URINE MANUAL NEGATIVE (NEGATIVE); BLOOD URINE MANUAL NEGATIVE (NEGATIVE); GLUCOSE, URINE (UA) MANUAL NEGATIVE (NEGATIVE); KETONE, URINE MANUAL NEGATIVE (NEGATIVE); LEUKOCYTE ESTERASE, URINE MAN NEGATIVE (NEGATIVE); NITRITE, URINE MANUAL NEGATIVE (NEGATIVE); PROTEIN, URINE MANUAL NEGATIVE (NEGATIVE); UROBILINOGEN, URINE MANUAL NORMAL (NORMAL)
[2022-10-03 17:54] LABS: ALBUMIN 3.8 G/DL (3.2-5.2); BLOOD UREA NITROGEN 11 MG/DL (9-23); CALCIUM LEVEL 8.6 MG/DL (8.5-10.1); CARBON DIOXIDE LEVEL 26 MMOL/L (20-31); CHLORIDE LEVEL 103 MMOL/L (98-107); CREATININE FOR GFR 1.09 MG/DL (0.55-1.30); GLOMERULAR FILTRATION RATE > 60.0 (>60); GLUCOSE, FASTING 96 MG/DL (60-100); PHOSPHORUS LEVEL 3.4 MG/DL (2.5-4.9); POTASSIUM SERUM 3.8 MMOL/L (3.5-5.1); SODIUM LEVEL 136 MMOL/L (136-145)
== END ==
LOC: M PLALAB 16:50
PROVIDERS: ATTEND Internal Medicine
DX: I10 Essential (primary) hypertension (principal)

== ENCOUNTER → 2022-11-05 | Outpatient (REF) | payer OTHER ==
[2022-11-05 16:02] LABS: BLOOD UREA NITROGEN 13 MG/DL (9-23); CALCIUM LEVEL 9.1 MG/DL (8.5-10.1); CARBON DIOXIDE LEVEL 28 MMOL/L (20-31); CHLORIDE LEVEL 102 MMOL/L (98-107); CREATININE FOR GFR 0.84 MG/DL (0.55-1.30); GLOMERULAR FILTRATION RATE > 60.0 (>60); GLUCOSE, FASTING 81 MG/DL (60-100); POTASSIUM SERUM 4.3 MMOL/L (3.5-5.1); SODIUM LEVEL 138 MMOL/L (136-145)
== END ==
LOC: M LAB REF 14:57
PROVIDERS: ATTEND Internal Medicine
DX: I10 Essential (primary) hypertension (principal)

== ENCOUNTER → 2022-12-19 | Outpatient (REF) | payer OTHER ==
[2022-12-19 10:13] LABS: BASO % 0.6 % (0.0-1.0); EOS # 0.2 10^3/uL (0.0-0.5); EOS % 3.1 % (0.0-3.0); HEMATOCRIT 39.4 % (36.0-47.0); HEMOGLOBIN 13.1 g/dl (12.0-15.5); LYMPH # 2.5 10^3/uL (1.5-5.0); LYMPH % 35.6 % (24.0-44.0); MEAN CORPUSCULAR HEMOGLOBIN 28.8 pg (27.0-33.0); MEAN CORPUSCULAR HGB CONC 33.2 g/dl (32.0-36.5); MEAN CORPUSCULAR VOLUME 86.6 fl (80.0-96.0); MONO # 0.4 10^3/uL (0.0-0.8); MONO % 5.6 % (2.0-8.0); NEUTROPHILS # 3.9 10^3/uL (1.5-8.5); NEUTROPHILS % 54.7 % (36.0-66.0); PLATELET COUNT, AUTOMATED 259 10^3/uL (150-450); RED BLOOD COUNT 4.55 10^6/uL (4.00-5.40); WHITE BLOOD COUNT 7.1 10^3/uL (4.0-10.0)
[2022-12-19 10:27] LABS: HEMOGLOBIN A1c 5.1 % (4.0-6.0)
[2022-12-19 11:20] LABS: ALKALINE PHOSPHATASE 83 U/L (46-116); ALT/SGPT 13 U/L (7.0-40); AST/SGOT 14 U/L (<34); BILIRUBIN,TOTAL 0.6 MG/DL (0.3-1.2); BLOOD UREA NITROGEN 16 MG/DL (9-23); CALCIUM LEVEL 9.3 MG/DL (8.5-10.1); CARBON DIOXIDE LEVEL 25 MMOL/L (20-31); CHLORIDE LEVEL 105 MMOL/L (98-107); CHOLESTEROL LEVEL 161 MG/DL (<200); CREATININE FOR GFR 0.83 MG/DL (0.55-1.30); FREE T4 0.96 NG/DL (0.89-1.76); GLOMERULAR FILTRATION RATE > 60.0 (>60); GLUCOSE, FASTING 87 MG/DL (60-100); HDL CHOLESTEROL 50.3 MG/DL (>40); NON-HDL-C 111 MG/DL; POTASSIUM SERUM 4.1 MMOL/L (3.5-5.1); SODIUM LEVEL 137 MMOL/L (136-145); THYROID STIMULATING HORMONE 3.767 uIU/ML (0.55-4.78); TOTAL 25(OH) VITAMIN D 24.4 NG/ML (20.0-100.0)
[2022-12-19 18:32] LABS: LDL CHOLESTEROL 97.7 MG/DL (<100); TOTAL PROTEIN 7.3 G/DL (5.7-8.2); TRIGLYCERIDES LEVEL 65 MG/DL (<150)
== END ==
LOC: M PLALAB 09:47
PROVIDERS: ATTEND Physician Assistant
DX: Z13.220 Encounter for screening for lipoid disorders (principal); E55.9 Vitamin D deficiency, unspecified; Z13.29 Encounter for screening for other suspected endocrine disorder

== ENCOUNTER 2023-01-14 04:44 | Emergency (ER) | payer OTHER ==
[~2023-01-14] VITALS: Ht 152.4 cm; Wt 91.7 kg
[2023-01-14 05:48] LABS: BASO % 0.2 % (0.0-1.0); EOS # 0.2 10^3/uL (0.0-0.5); EOS % 1.6 % (0.0-3.0); HEMATOCRIT 38.1 % (36.0-47.0); HEMOGLOBIN 12.8 g/dl (12.0-15.5); LYMPH # 2.5 10^3/uL (1.5-5.0); LYMPH % 20.2 % (24.0-44.0); MEAN CORPUSCULAR HEMOGLOBIN 28.1 pg (27.0-33.0); MEAN CORPUSCULAR HGB CONC 33.6 g/dl (32.0-36.5); MEAN CORPUSCULAR VOLUME 83.7 fl (80.0-96.0); MONO # 0.8 10^3/uL (0.0-0.8); MONO % 6.6 % (2.0-8.0); NEUTROPHILS # 8.8 10^3/uL (1.5-8.5); NEUTROPHILS % 71.1 % (36.0-66.0); PLATELET COUNT, AUTOMATED 270 10^3/uL (150-450); RED BLOOD COUNT 4.55 10^6/uL (4.00-5.40); WHITE BLOOD COUNT 12.4 10^3/uL (4.0-10.0)
[2023-01-14 06:05] LABS: LIPASE 27 U/L (12-53)
[2023-01-14] MEDS ORDERED: KETOROLAC 30 MG/ML 1ML VIAL IV ONE (06:05)
[2023-01-14 06:10] LABS: ALBUMIN 3.8 G/DL (3.2-5.2); ALKALINE PHOSPHATASE 91 U/L (46-116); ALT/SGPT 11 U/L (7.0-40); AST/SGOT 12 U/L (<34); BILIRUBIN,DIRECT 0.2 MG/DL (<0.4); BILIRUBIN,TOTAL 0.8 MG/DL (0.3-1.2); BLOOD UREA NITROGEN 8 MG/DL (9-23); CARBON DIOXIDE LEVEL 25 MMOL/L (20-31); CHLORIDE LEVEL 105 MMOL/L (98-107); CREATININE FOR GFR 0.77 MG/DL (0.55-1.30); GLOMERULAR FILTRATION RATE > 60.0 (>60); GLUCOSE, FASTING 102 MG/DL (60-100); POTASSIUM SERUM 3.7 MMOL/L (3.5-5.1); SODIUM LEVEL 136 MMOL/L (136-145)
[2023-01-14 06:14] LABS: HCG, SERUM QUALITATIVE NEGATIVE (NEGATIVE)
[2023-01-14] MEDS ORDERED: ISOVUE-370 76% 100ML VIAL As Ordered ONE (06:22)
[2023-01-14] MEDS ORDERED: PIPERACILLIN/TAZOBACTAM SOD 4.5 GM in D5W MINI-BAG PLUS 50 ML IV ONE (06:55)
[2023-01-14] MEDS ORDERED: METR-265 PO (08:15)
[2023-01-14] MEDS ORDERED: CIPR-249 PO (08:15)
[2023-01-14] MEDS ORDERED: ONDA4TAB6 PO (08:16)
[2023-01-14 08:46] VITALS: BP 135/82
== END 2023-01-14 11:05 | disposition home or self-care (01) ==
LOC: M ED 04:44
DX: K57.92 Diverticulitis of intestine, part unspecified, without perforation or abscess without bleeding (principal); Z79.899 Other long term (current) drug therapy
CPT/HCPCS: 74177; 80048; 80076; 81001; 82150; 83690; 84703; 85025; 96374; 96375; 99284; J1885; J2543; Q9967

== ENCOUNTER → 2023-01-17 | Outpatient (REF) | payer OTHER ==
[~2023-01-17] MED LIST changes: +METR-265 PO; +ONDA4TAB6 PO
[2023-01-17 15:32] LABS: BASO # 0.1 10^3/uL (0.0-0.2); BASO % 0.7 % (0.0-1.0); EOS # 0.3 10^3/uL (0.0-0.5); EOS % 3.7 % (0.0-3.0); HEMATOCRIT 36.9 % (36.0-47.0); HEMOGLOBIN 11.9 g/dl (12.0-15.5); LYMPH # 2.8 10^3/uL (1.5-5.0); LYMPH % 41.3 % (24.0-44.0); MEAN CORPUSCULAR HEMOGLOBIN 27.7 pg (27.0-33.0); MEAN CORPUSCULAR HGB CONC 32.2 g/dl (32.0-36.5); MEAN CORPUSCULAR VOLUME 85.8 fl (80.0-96.0); MONO # 0.5 10^3/uL (0.0-0.8); MONO % 7.5 % (2.0-8.0); NEUTROPHILS # 3.2 10^3/uL (1.5-8.5); NEUTROPHILS % 46.4 % (36.0-66.0); PLATELET COUNT, AUTOMATED 322 10^3/uL (150-450); WHITE BLOOD COUNT 6.8 10^3/uL (4.0-10.0)
[2023-01-17 16:04] LABS: LIPASE 67 U/L (12-53)
[2023-01-17 16:07] LABS: ALBUMIN 3.9 G/DL (3.2-5.2); ALKALINE PHOSPHATASE 82 U/L (46-116); ALT/SGPT 14 U/L (7.0-40); AST/SGOT 16 U/L (<34); BILIRUBIN,DIRECT 0.2 MG/DL (<0.4); BILIRUBIN,TOTAL 0.5 MG/DL (0.3-1.2); BLOOD UREA NITROGEN 9 MG/DL (9-23); CALCIUM LEVEL 8.7 MG/DL (8.5-10.1); CARBON DIOXIDE LEVEL 27 MMOL/L (20-31); CHLORIDE LEVEL 102 MMOL/L (98-107); CREATININE FOR GFR 0.84 MG/DL (0.55-1.30); GLOMERULAR FILTRATION RATE > 60.0 (>60); GLUCOSE, FASTING 89 MG/DL (60-100); POTASSIUM SERUM 3.5 MMOL/L (3.5-5.1); SODIUM LEVEL 137 MMOL/L (136-145); TOTAL PROTEIN 7.2 G/DL (5.7-8.2)
== END ==
LOC: M PLALAB 15:05
PROVIDERS: ATTEND Physician Assistant
DX: K57.32 Diverticulitis of large intestine without perforation or abscess without bleeding (principal)

== ENCOUNTER 2023-04-12 06:43 | Day surgery (SDC) | payer OTHER ==
[~2023-04-12] VITALS: Ht 167.6 cm; Wt 85.9 kg
[~2023-04-12 06:43] MED LIST changes: +ERGO500029 PO; +NS 1,000 ML IV ONE; +SPIR-10 PO
[2023-04-12] MEDS ORDERED: propofoL 200 MG/20 ML VIAL As Ordered ONE (07:10)
[2023-04-12] MEDS ORDERED: LIDOCAINE 2% 100MG/5ML SDV (FOR ANES.) As Ordered ONE (07:10)
[2023-04-12 07:45] VITALS: TEMP 97.8
[2023-04-12 08:00] VITALS: BP 117/71; O2SAT 100
== END 2023-04-12 08:15 | disposition home or self-care (01) ==
LOC: M OPP 06:43
PROVIDERS: ATTEND Surgery
DX: K57.30 Diverticulosis of large intestine without perforation or abscess without bleeding (principal); K57.32 Diverticulitis of large intestine without perforation or abscess without bleeding; Z79.2 Long term (current) use of antibiotics; Z79.83 Long term (current) use of bisphosphonates; Z79.899 Other long term (current) drug therapy; Z79.891 Long term (current) use of opiate analgesic

== ENCOUNTER → 2023-04-15 | Outpatient (REF) | payer OTHER ==
[~2023-04-15] MED LIST changes: -NS 1,000 ML IV ONE
[2023-04-15 17:36] LABS: APPEARANCE, URINE CLEAR (CLEAR); BACTERIA, URINE AUTO NEGATIVE (NEGATIVE); BILIRUBIN, URINE AUTO NEGATIVE (NEGATIVE); BLOOD, URINE BLOOD NEGATIVE (NEGATIVE); COLOR, URINE STRAW (YELLOW); GLUCOSE, URINE (UA) AUTO NEGATIVE (NEGATIVE); KETONE, URINE AUTO NEGATIVE (NEGATIVE); LEUKOCYTE ESTERASE, URINE AUTO NEGATIVE (NEGATIVE); NITRITE, URINE AUTO NEGATIVE (NEGATIVE); PROTEIN, URINE AUTO NEGATIVE (NEGATIVE); RBC, URINE AUTO 0 /HPF (0-3); SPECIFIC GRAVITY URINE AUTO 1.005 (1.002-1.035); SQUAMOUS EPITHELIAL CELL UR AU 0 /HPF (0-6); UROBILINOGEN, URINE AUTO 0.2 mg/dL (0.0-2.0); WBC, URINE AUTO 0 /HPF (0-3)
[2023-04-15 17:42] LABS: HEMATOCRIT 38.4 % (36.0-47.0); HEMOGLOBIN 12.6 g/dl (12.0-15.5); MEAN CORPUSCULAR HEMOGLOBIN 28.8 pg (27.0-33.0); MEAN CORPUSCULAR HGB CONC 32.8 g/dl (32.0-36.5); MEAN CORPUSCULAR VOLUME 87.9 fl (80.0-96.0); PLATELET COUNT, AUTOMATED 258 10^3/uL (150-450); RED BLOOD COUNT 4.37 10^6/uL (4.00-5.40); WHITE BLOOD COUNT 6.7 10^3/uL (4.0-10.0)
[2023-04-15 17:47] LABS: BLOOD UREA NITROGEN 15 MG/DL (9-23); CALCIUM LEVEL 8.9 MG/DL (8.5-10.1); CARBON DIOXIDE LEVEL 26 MMOL/L (20-31); CHLORIDE LEVEL 104 MMOL/L (98-107); CREATININE FOR GFR 0.94 MG/DL (0.55-1.30); GLOMERULAR FILTRATION RATE > 60.0 (>60); GLUCOSE, FASTING 91 MG/DL (60-100); POTASSIUM SERUM 4.1 MMOL/L (3.5-5.1); SODIUM LEVEL 138 MMOL/L (136-145)
[2023-04-15 18:06] LABS: CREATININE,RANDOM URINE 39.7 MG/DL
[2023-04-15 18:09] LABS: TOTAL PROTEIN,RANDOM URINE < 6.0 MG/DL (0.0-14.0)
== END ==
LOC: M PLALAB 16:40
PROVIDERS: ATTEND Internal Medicine
DX: N13.732 Vesicoureteral-reflux with reflux nephropathy with hydroureter, bilateral (principal); R80.9 Proteinuria, unspecified; N39.0 Urinary tract infection, site not specified; D64.9 Anemia, unspecified

== ENCOUNTER 2023-05-27 03:46 | Emergency (ER) | payer OTHER ==
[~2023-05-27] VITALS: Ht 167.6 cm; Wt 82.4 kg
[2023-05-27 04:53] LABS: BASO % 0.3 % (0.0-1.0); EOS # 0.2 10^3/uL (0.0-0.5); EOS % 1.5 % (0.0-3.0); HEMATOCRIT 39.2 % (36.0-47.0); LYMPH # 2.4 10^3/uL (1.5-5.0); MEAN CORPUSCULAR HEMOGLOBIN 28.4 pg (27.0-33.0); MEAN CORPUSCULAR HGB CONC 33.2 g/dl (32.0-36.5); MEAN CORPUSCULAR VOLUME 85.8 fl (80.0-96.0); MONO # 0.6 10^3/uL (0.0-0.8); MONO % 5.1 % (2.0-8.0); NEUTROPHILS # 7.8 10^3/uL (1.5-8.5); NEUTROPHILS % 70.8 % (36.0-66.0); PLATELET COUNT, AUTOMATED 255 10^3/uL (150-450); RED BLOOD COUNT 4.57 10^6/uL (4.00-5.40); WHITE BLOOD COUNT 11.1 10^3/uL (4.0-10.0)
[2023-05-27 04:57] LABS: LIPASE 36 U/L (12-53)
[2023-05-27 04:59] LABS: ALBUMIN 4.2 G/DL (3.2-5.2); ALKALINE PHOSPHATASE 52 U/L (46-116); ALT/SGPT 14 U/L (7.0-40); AST/SGOT 11 U/L (<34); BILIRUBIN,DIRECT 0.2 MG/DL (<0.4); BILIRUBIN,TOTAL 0.6 MG/DL (0.3-1.2); BLOOD UREA NITROGEN 15 MG/DL (9-23); CARBON DIOXIDE LEVEL 22 MMOL/L (20-31); CHLORIDE LEVEL 107 MMOL/L (98-107); CREATININE FOR GFR 0.76 MG/DL (0.55-1.30); GLOMERULAR FILTRATION RATE > 60.0 (>60); GLUCOSE, FASTING 92 MG/DL (60-100); POTASSIUM SERUM 4.1 MMOL/L (3.5-5.1); SODIUM LEVEL 142 MMOL/L (136-145); TOTAL PROTEIN 7.2 G/DL (5.7-8.2)
[2023-05-27 05:00] LABS: HCG, SERUM QUALITATIVE NEGATIVE (NEGATIVE)
[2023-05-27] MEDS ORDERED: NS 1,000 ML IV ONE (05:40)
[2023-05-27] MEDS ORDERED: KETOROLAC 30 MG/ML 1ML VIAL IV ONE (05:40)
[2023-05-27] MEDS ORDERED: ISOVUE-370 76% 100ML VIAL As Ordered ONE (06:04)
[2023-05-27] MEDS ORDERED: CIPROFLOXACIN 400 MG in IV 1 EA IV ONE (07:10)
[2023-05-27] MEDS ORDERED: metroNIDAZOLE 500 MG in IV 1 EA IV ONE (07:10)
[2023-05-27] MEDS ORDERED: METR-265 PO (08:04)
[2023-05-27] MEDS ORDERED: CIPR-249 PO (08:04)
[2023-05-27] MEDS ORDERED: KETO10TAB PO (08:05)
[2023-05-27 09:25] VITALS: BP 136/88; TEMP 98.4; O2SAT 99
== END 2023-05-27 09:34 | disposition home or self-care (01) ==
LOC: M ED 03:46
DX: K57.92 Diverticulitis of intestine, part unspecified, without perforation or abscess without bleeding (principal)
CPT/HCPCS: 36415; 74177; 80048; 80076; 83690; 84703; 85025; 96365; 96368; 96375; 99284; J0744; J1836; J1885; Q9967

== ENCOUNTER → 2023-06-04 | Outpatient (REF) | payer OTHER ==
[2023-06-04 16:00] LABS: BASO % 0.4 % (0.0-1.0); EOS # 0.2 10^3/uL (0.0-0.5); EOS % 2.7 % (0.0-3.0); HEMATOCRIT 38.1 % (36.0-47.0); HEMOGLOBIN 12.5 g/dl (12.0-15.5); LYMPH # 2.7 10^3/uL (1.5-5.0); LYMPH % 39.5 % (24.0-44.0); MEAN CORPUSCULAR HEMOGLOBIN 28.4 pg (27.0-33.0); MEAN CORPUSCULAR HGB CONC 32.8 g/dl (32.0-36.5); MEAN CORPUSCULAR VOLUME 86.6 fl (80.0-96.0); MONO # 0.4 10^3/uL (0.0-0.8); MONO % 5.2 % (2.0-8.0); NEUTROPHILS # 3.6 10^3/uL (1.5-8.5); NEUTROPHILS % 52.1 % (36.0-66.0); PLATELET COUNT, AUTOMATED 330 10^3/uL (150-450); WHITE BLOOD COUNT 6.9 10^3/uL (4.0-10.0)
[2023-06-04 16:18] LABS: LIPASE 46 U/L (12-53)
[2023-06-04 16:20] LABS: ALBUMIN 4.1 G/DL (3.2-5.2); ALKALINE PHOSPHATASE 50 U/L (46-116); ALT/SGPT 14 U/L (7.0-40); AST/SGOT < 8 U/L (<34); BILIRUBIN,DIRECT 0.2 MG/DL (<0.4); BILIRUBIN,TOTAL 0.4 MG/DL (0.3-1.2); BLOOD UREA NITROGEN 15 MG/DL (9-23); CALCIUM LEVEL 9.3 MG/DL (8.5-10.1); CARBON DIOXIDE LEVEL 28 MMOL/L (20-31); CHLORIDE LEVEL 103 MMOL/L (98-107); CREATININE FOR GFR 0.87 MG/DL (0.55-1.30); GLOMERULAR FILTRATION RATE > 60.0 (>60); GLUCOSE, FASTING 89 MG/DL (60-100); POTASSIUM SERUM 4.1 MMOL/L (3.5-5.1); SODIUM LEVEL 139 MMOL/L (136-145); TOTAL PROTEIN 7.5 G/DL (5.7-8.2)
== END ==
LOC: M SFHCPLAZ 15:22 → M LAB REF 15:22
PROVIDERS: ATTEND Physician Assistant
DX: R19.7 Diarrhea, unspecified (principal)

== ENCOUNTER → 2023-06-05 | Outpatient (REF) | payer OTHER | LOC: M LAB REF 09:42 | PROVIDERS: ATTEND Physician Assistant | DX: R19.7 Diarrhea, unspecified (principal) ==

== ENCOUNTER 2023-06-17 18:38 | Emergency (ER) | payer OTHER ==
[~2023-06-17] VITALS: Ht 167.6 cm; Wt 80.9 kg
[2023-06-17 19:34] LABS: BASO # 0.1 10^3/uL (0.0-0.2); BASO % 0.7 % (0.0-1.0); EOS # 0.2 10^3/uL (0.0-0.5); EOS % 2.7 % (0.0-3.0); HEMATOCRIT 39.8 % (36.0-47.0); LYMPH % 39.9 % (24.0-44.0); MEAN CORPUSCULAR HEMOGLOBIN 28.5 pg (27.0-33.0); MEAN CORPUSCULAR HGB CONC 32.7 g/dl (32.0-36.5); MEAN CORPUSCULAR VOLUME 87.3 fl (80.0-96.0); MONO # 0.5 10^3/uL (0.0-0.8); MONO % 7.2 % (2.0-8.0); NEUTROPHILS # 3.7 10^3/uL (1.5-8.5); NEUTROPHILS % 49.2 % (36.0-66.0); PLATELET COUNT, AUTOMATED 273 10^3/uL (150-450); RED BLOOD COUNT 4.56 10^6/uL (4.00-5.40); WHITE BLOOD COUNT 7.5 10^3/uL (4.0-10.0)
[2023-06-17 19:48] LABS: LIPASE 39 U/L (12-53)
[2023-06-17 19:50] LABS: ALBUMIN 4.3 G/DL (3.2-5.2); ALKALINE PHOSPHATASE 60 U/L (46-116); ALT/SGPT 13 U/L (7.0-40); AST/SGOT 9 U/L (<34); BILIRUBIN,DIRECT 0.2 MG/DL (<0.4); BILIRUBIN,TOTAL 0.5 MG/DL (0.3-1.2); BLOOD UREA NITROGEN 16 MG/DL (9-23); CALCIUM LEVEL 9.3 MG/DL (8.5-10.1); CARBON DIOXIDE LEVEL 25 MMOL/L (20-31); CHLORIDE LEVEL 104 MMOL/L (98-107); CREATININE FOR GFR 0.79 MG/DL (0.55-1.30); GLOMERULAR FILTRATION RATE > 60.0 (>60); GLUCOSE, FASTING 90 MG/DL (60-100); POTASSIUM SERUM 4.3 MMOL/L (3.5-5.1); SODIUM LEVEL 138 MMOL/L (136-145); TOTAL PROTEIN 7.7 G/DL (5.7-8.2)
[2023-06-17] MEDS ORDERED: CIPROFLOXACIN 500MG TABLET PO ONE (21:45)
[2023-06-17] MEDS ORDERED: metroNIDAZOLE (FLAGYL) 500MG TABLET PO ONE (21:45)
[2023-06-17] MEDS ORDERED: CIPR-249 PO (22:02)
[2023-06-17] MEDS ORDERED: METR-265 PO (22:02)
[2023-06-17 22:07] VITALS: BP 134/70; TEMP 98; O2SAT 100
== END 2023-06-17 22:08 | disposition home or self-care (01) ==
LOC: M ED 18:38
DX: K57.92 Diverticulitis of intestine, part unspecified, without perforation or abscess without bleeding (principal); E11.9 Type 2 diabetes mellitus without complications; I10 Essential (primary) hypertension; J45.909 Unspecified asthma, uncomplicated; Z79.2 Long term (current) use of antibiotics; Z79.899 Other long term (current) drug therapy; Z79.83 Long term (current) use of bisphosphonates

== ENCOUNTER → 2023-06-26 | Outpatient (CLI) | payer OTHER | LOC: M PLAIMG 13:56 | PROVIDERS: ATTEND Physician Assistant | DX: K59.00 Constipation, unspecified (principal); Z97.5 Presence of (intrauterine) contraceptive device ==

== ENCOUNTER 2023-09-01 12:37 | Emergency (ER) | payer OTHER ==
[~2023-09-01] VITALS: Ht 165.1 cm; Wt 80.5 kg
[2023-09-01 12:37] VITALS: TEMP 98.4
[2023-09-01] MEDS ORDERED: SODI177S2 (12:50)
[2023-09-01 14:03] LABS: BASO % 0.4 % (0.0-1.0); EOS # 0.2 10^3/uL (0.0-0.5); EOS % 2.2 % (0.0-3.0); HEMOGLOBIN 13.2 g/dl (12.0-15.5); LYMPH # 2.6 10^3/uL (1.5-5.0); LYMPH % 27.9 % (24.0-44.0); MEAN CORPUSCULAR HEMOGLOBIN 29.5 pg (27.0-33.0); MEAN CORPUSCULAR HGB CONC 33.8 g/dl (32.0-36.5); MEAN CORPUSCULAR VOLUME 87.2 fl (80.0-96.0); MONO # 0.4 10^3/uL (0.0-0.8); MONO % 4.7 % (2.0-8.0); NEUTROPHILS # 6.1 10^3/uL (1.5-8.5); NEUTROPHILS % 64.7 % (36.0-66.0); PLATELET COUNT, AUTOMATED 269 10^3/uL (150-450); RED BLOOD COUNT 4.47 10^6/uL (4.00-5.40); WHITE BLOOD COUNT 9.4 10^3/uL (4.0-10.0)
[2023-09-01 14:17] LABS: INR 1.03; PROTHROMBIN TIME 13.2 SECONDS (12.5-14.5)
[2023-09-01] MEDS ORDERED: ISOVUE-370 76% 100ML VIAL As Ordered ONE (14:17)
[2023-09-01 14:18] LABS: PARTIAL THROMBOPLASTIN TIME 29.1 SECONDS (24.8-34.2)
[2023-09-01 14:28] LABS: ALBUMIN 3.9 G/DL (3.2-5.2); BILIRUBIN,DIRECT 0.1 MG/DL (<0.4); BILIRUBIN,TOTAL 0.4 MG/DL (0.3-1.2); TOTAL PROTEIN 7.3 G/DL (5.7-8.2)
[2023-09-01 14:36] LABS: RSV AMPLIFICATION NEGATIVE (NEGATIVE)
[2023-09-01 16:30] VITALS: BP 127/69; O2SAT 97
== END 2023-09-01 17:06 | disposition home or self-care (01) ==
LOC: M ED 12:37
DX: R10.32 Left lower quadrant pain (principal); I10 Essential (primary) hypertension; K57.92 Diverticulitis of intestine, part unspecified, without perforation or abscess without bleeding; Z79.899 Other long term (current) drug therapy
CPT/HCPCS: 74177; 80047; 80076; 81001; 82150; 83605; 83690; 84702; 85025; 85610; 85730; 87040; 87631; 93041; 99284; Q9967

== ENCOUNTER → 2024-04-22 | Outpatient (REF) | payer OTHER ==
[~2024-04-22] MED LIST changes: +LABE100T40 PO; -LABE100T71 PO; +ONDA-282 PO; -ONDA4TAB6 PO; +SODI177S2
[2024-04-22 11:40] LABS: BASO % 0.4 % (0.0-1.0); EOS # 0.3 10^3/uL (0.0-0.5); EOS % 4.5 % (0.0-3.0); HEMATOCRIT 38.6 % (36.0-47.0); HEMOGLOBIN 12.9 g/dl (12.0-15.5); LYMPH # 2.4 10^3/uL (1.5-5.0); LYMPH % 36.1 % (24.0-44.0); MEAN CORPUSCULAR HEMOGLOBIN 29.1 pg (27.0-33.0); MEAN CORPUSCULAR HGB CONC 33.4 g/dl (32.0-36.5); MEAN CORPUSCULAR VOLUME 86.9 fl (80.0-96.0); MONO # 0.5 10^3/uL (0.0-0.8); MONO % 6.8 % (2.0-8.0); NEUTROPHILS # 3.5 10^3/uL (1.5-8.5); NEUTROPHILS % 51.9 % (36.0-66.0); PLATELET COUNT, AUTOMATED 253 10^3/uL (150-450); RED BLOOD COUNT 4.44 10^6/uL (4.00-5.40); WHITE BLOOD COUNT 6.7 10^3/uL (4.0-10.0)
[2024-04-22 12:04] LABS: ALBUMIN 3.9 G/DL (3.2-5.2); ALKALINE PHOSPHATASE 70 U/L (46-116); ALT/SGPT 17 U/L (7.0-40); AST/SGOT 9 U/L (<34); BILIRUBIN,TOTAL 0.5 MG/DL (0.3-1.2); BLOOD UREA NITROGEN 14 MG/DL (9-23); CALCIUM LEVEL 9.1 MG/DL (8.5-10.1); CARBON DIOXIDE LEVEL 28 MMOL/L (20-31); CHLORIDE LEVEL 108 MMOL/L (98-107); CHOLESTEROL LEVEL 165 MG/DL (<200); CHOLESTEROL RISK RATIO 2.89 (<5); CREATININE FOR GFR 0.82 MG/DL (0.55-1.30); GLOMERULAR FILTRATION RATE > 60.0 (>60); GLUCOSE, FASTING 79 MG/DL (60-100); HDL CHOLESTEROL 56.9 MG/DL (>40); LDL CHOLESTEROL 96.7 MG/DL (<100); NON-HDL-C 108.1 MG/DL; POTASSIUM SERUM 4.5 MMOL/L (3.5-5.1); SODIUM LEVEL 138 MMOL/L (136-145); TRIGLYCERIDES LEVEL 57 MG/DL (<150)
[2024-04-22 12:07] LABS: THYROID STIMULATING HORMONE 3.078 uIU/ML (0.55-4.78); TOTAL 25(OH) VITAMIN D 26.5 NG/ML (20.0-100.0)
[2024-04-22 12:09] LABS: FREE T4 1.05 NG/DL (0.89-1.76)
== END ==
LOC: M LAB REF 11:03
PROVIDERS: ATTEND Family Medicine
DX: E55.9 Vitamin D deficiency, unspecified (principal); Z13.29 Encounter for screening for other suspected endocrine disorder; Z13.0 Encounter for screening for diseases of the blood and blood-forming organs and certain disorders involving the immune mechanism; Z13.220 Encounter for screening for lipoid disorders

== ENCOUNTER 2024-06-10 21:34 | Emergency (ER) | payer OTHER ==
[~2024-06-10] VITALS: Ht 167.6 cm; Wt 92.2 kg
[2024-06-10 21:35] VITALS: TEMP 97.6
[2024-06-10 22:27] LABS: BASO # 0.1 10^3/uL (0.0-0.2); BASO % 0.5 % (0.0-1.0); EOS # 0.4 10^3/uL (0.0-0.5); HEMATOCRIT 38.1 % (36.0-47.0); HEMOGLOBIN 12.6 g/dl (12.0-15.5); LYMPH # 2.8 10^3/uL (1.5-5.0); LYMPH % 21.2 % (24.0-44.0); MEAN CORPUSCULAR HEMOGLOBIN 28.6 pg (27.0-33.0); MEAN CORPUSCULAR HGB CONC 33.1 g/dl (32.0-36.5); MEAN CORPUSCULAR VOLUME 86.6 fl (80.0-96.0); MONO # 0.8 10^3/uL (0.0-0.8); MONO % 5.7 % (2.0-8.0); NEUTROPHILS # 9.2 10^3/uL (1.5-8.5); NEUTROPHILS % 69.3 % (36.0-66.0); PLATELET COUNT, AUTOMATED 296 10^3/uL (150-450); WHITE BLOOD COUNT 13.2 10^3/uL (4.0-10.0)
[2024-06-10 22:54] LABS: HCG, SERUM QUALITATIVE NEGATIVE (NEGATIVE); LIPASE 35 U/L (12-53)
[2024-06-10 22:56] LABS: ALKALINE PHOSPHATASE 84 U/L (46-116); ALT/SGPT 26 U/L (7.0-40); AST/SGOT 22 U/L (<34); BILIRUBIN,DIRECT 0.1 MG/DL (<0.4); BILIRUBIN,TOTAL 0.4 MG/DL (0.3-1.2); BLOOD UREA NITROGEN 11 MG/DL (9-23); CALCIUM LEVEL 8.9 MG/DL (8.5-10.1); CARBON DIOXIDE LEVEL 27 MMOL/L (20-31); CHLORIDE LEVEL 105 MMOL/L (98-107); CREATININE FOR GFR 0.88 MG/DL (0.55-1.30); GLOMERULAR FILTRATION RATE > 60.0 (>60); GLUCOSE, FASTING 105 MG/DL (60-100); SODIUM LEVEL 136 MMOL/L (136-145); TOTAL PROTEIN 7.3 G/DL (5.7-8.2)
[2024-06-11] MEDS ORDERED: ISOVUE-370 76% 100ML VIAL As Ordered ONE (01:11)
[2024-06-11] MEDS: CIPROFLOXACIN 400 MG in IV 1 EA IV ONE (01:17)
[2024-06-11] MEDS: metroNIDAZOLE 500 MG in IV 1 EA IV ONE (02:23)
[2024-06-11 03:33] VITALS: BP 129/74; O2SAT 97
== END 2024-06-11 03:45 | disposition home or self-care (01) ==
LOC: M ED 21:34
DX: K57.32 Diverticulitis of large intestine without perforation or abscess without bleeding (principal); Z79.899 Other long term (current) drug therapy
CPT/HCPCS: 74177; 80048; 80076; 81001; 83690; 84703; 85025; 96365; 96367; 99284; J0744; J1836; Q9967

== ENCOUNTER → 2024-06-10 | Outpatient (REF) | payer OTHER | LOC: M LAB REF 16:52 | PROVIDERS: ATTEND Family Medicine | DX: N23 Unspecified renal colic (principal) ==

== ENCOUNTER → 2024-07-03 | Outpatient (REF) | payer OTHER | LOC: M LAB REF 15:06 | PROVIDERS: ATTEND Physician Assistant | DX: N30.00 Acute cystitis without hematuria (principal) ==

== ENCOUNTER → 2024-07-10 | Outpatient (REF) | payer OTHER | LOC: M LAB REF 15:06 | PROVIDERS: ATTEND Physician Assistant | DX: N39.0 Urinary tract infection, site not specified (principal) ==

== ENCOUNTER → 2024-08-07 | Outpatient (CLI) | payer OTHER | LOC: M RAD 13:59 | PROVIDERS: ATTEND Urology | DX: N13.30 Unspecified hydronephrosis (principal) ==

== ENCOUNTER → 2024-11-13 | Outpatient (REF) | payer OTHER ==
[2024-11-18 15:11] LABS: HPV APTIMA Not Detected (Not Detected)
== END ==
LOC: M SFHCWAGY 13:06
PROVIDERS: ATTEND Obstetrics & Gynecology
DX: Z01.419 Encounter for gynecological examination (general) (routine) without abnormal findings (principal)
CPT/HCPCS: 87624; G0123

== ENCOUNTER → 2024-11-17 | Outpatient (REF) | payer OTHER ==
[2024-11-17 17:26] LABS: BASO % 0.4 % (0.0-1.0); EOS # 0.4 10^3/uL (0.0-0.5); EOS % 4.5 % (0.0-3.0); HEMATOCRIT 38.8 % (36.0-47.0); HEMOGLOBIN 13.1 g/dl (12.0-15.5); LYMPH # 3.2 10^3/uL (1.5-5.0); LYMPH % 35.2 % (24.0-44.0); MEAN CORPUSCULAR HEMOGLOBIN 28.9 pg (27.0-33.0); MEAN CORPUSCULAR HGB CONC 33.8 g/dl (32.0-36.5); MEAN CORPUSCULAR VOLUME 85.7 fl (80.0-96.0); MONO # 0.5 10^3/uL (0.0-0.8); MONO % 5.6 % (2.0-8.0); NEUTROPHILS # 4.9 10^3/uL (1.5-8.5); NEUTROPHILS % 54.1 % (36.0-66.0); PLATELET COUNT, AUTOMATED 310 10^3/uL (150-450); RED BLOOD COUNT 4.53 10^6/uL (4.00-5.40)
[2024-11-17 17:28] LABS: APPEARANCE, URINE CLEAR (CLEAR); BACTERIA, URINE AUTO NEGATIVE (NEGATIVE); BILIRUBIN, URINE AUTO NEGATIVE (NEGATIVE); BLOOD, URINE BLOOD NEGATIVE (NEGATIVE); COLOR, URINE YELLOW (YELLOW); GLUCOSE, URINE (UA) AUTO NEGATIVE (NEGATIVE); KETONE, URINE AUTO NEGATIVE (NEGATIVE); LEUKOCYTE ESTERASE, URINE AUTO NEGATIVE (NEGATIVE); NITRITE, URINE AUTO NEGATIVE (NEGATIVE); PROTEIN, URINE AUTO NEGATIVE (NEGATIVE); RBC, URINE AUTO 0 /HPF (0-3); SPECIFIC GRAVITY URINE AUTO 1.006 (1.002-1.035); SQUAMOUS EPITHELIAL CELL UR AU 3 /HPF (0-6); UROBILINOGEN, URINE AUTO 0.2 mg/dL (0.0-2.0); WBC, URINE AUTO 0 /HPF (0-3)
[2024-11-17 17:51] LABS: ALBUMIN 3.9 G/DL (3.2-5.2); ALKALINE PHOSPHATASE 70 U/L (35-104); ALT/SGPT 12 U/L (7.0-40); AST/SGOT 14 U/L (<34); BILIRUBIN,TOTAL 0.2 MG/DL (0.3-1.2); BLOOD UREA NITROGEN 15 MG/DL (9-23); CALCIUM LEVEL 9.2 MG/DL (8.5-10.1); CARBON DIOXIDE LEVEL 25 MMOL/L (20-31); CHLORIDE LEVEL 109 MMOL/L (98-107); CREATININE FOR GFR 0.76 MG/DL (0.55-1.30); GLOMERULAR FILTRATION RATE > 60.0 (>60); GLUCOSE, FASTING 85 MG/DL (60-100); POTASSIUM SERUM 4.4 MMOL/L (3.5-5.1); SODIUM LEVEL 140 MMOL/L (136-145); TOTAL PROTEIN 7.4 G/DL (5.7-8.2)
[2024-11-17 17:53] LABS: THYROID STIMULATING HORMONE 3.582 uIU/ML (0.55-4.78)
== END ==
LOC: M LAB 16:12 → EDSTATUS 11-20 12:50
PROVIDERS: ATTEND Family Medicine
DX: Z00.00 Encounter for general adult medical examination without abnormal findings (principal)

== ENCOUNTER → 2025-04-27 | Outpatient (REF) | payer OTHER ==
[2025-04-27 15:35] LABS: APPEARANCE, URINE CLEAR (CLEAR); BACTERIA, URINE AUTO 1+ (NEGATIVE); BILIRUBIN, URINE AUTO NEGATIVE (NEGATIVE); BLOOD, URINE BLOOD 1+ (NEGATIVE); GLUCOSE, URINE (UA) AUTO NEGATIVE (NEGATIVE); KETONE, URINE AUTO NEGATIVE (NEGATIVE); LEUKOCYTE ESTERASE, URINE AUTO 3+ (NEGATIVE); NITRITE, URINE AUTO NEGATIVE (NEGATIVE); PROTEIN, URINE AUTO NEGATIVE (NEGATIVE); RBC, URINE AUTO 1 /HPF (0-3); SPECIFIC GRAVITY URINE AUTO 1.004 (1.002-1.035); SQUAMOUS EPITHELIAL CELL UR AU 0 /HPF (0-6); UROBILINOGEN, URINE AUTO 0.2 mg/dL (0.0-2.0); WBC, URINE AUTO 30 /HPF (0-3)
== END ==
LOC: M LAB REF 15:15
PROVIDERS: ATTEND Internal Medicine
DX: N13.732 Vesicoureteral-reflux with reflux nephropathy with hydroureter, bilateral (principal); N39.0 Urinary tract infection, site not specified

== ENCOUNTER → 2025-04-28 | Outpatient (REF) | payer OTHER | LOC: M LAB REF 14:30 | PROVIDERS: ATTEND Internal Medicine | DX: N39.0 Urinary tract infection, site not specified (principal); N13.732 Vesicoureteral-reflux with reflux nephropathy with hydroureter, bilateral ==

== ENCOUNTER 2025-05-25 14:12 | Emergency (ER) | payer OTHER ==
[~2025-05-25] VITALS: Ht 167.6 cm; Wt 87.3 kg
[2025-05-25 15:09] LABS: BASO # 0.0 10^3/uL (0.0-0.2); BASO % 0.5 % (0.0-1.0); EOS # 0.2 10^3/uL (0.0-0.5); EOS % 3.5 % (0.0-3.0); LYMPH # 2.5 10^3/uL (1.5-5.0); LYMPH % 39.6 % (24.0-44.0); MONO # 0.3 10^3/uL (0.0-0.8); MONO % 5.0 % (2.0-8.0); NEUTROPHILS # 3.2 10^3/uL (1.5-8.5); NEUTROPHILS % 51.2 % (36.0-66.0); PLATELET COUNT, AUTOMATED 274 10^3/uL (150-450)
[2025-05-25 15:39] LABS: ALT/SGPT 12 U/L (7.0-40); AST/SGOT 16 U/L (<34); CALCIUM LEVEL 9.2 MG/DL (8.5-10.1); CARBON DIOXIDE LEVEL 26 MMOL/L (20-31); CHLORIDE LEVEL 104 MMOL/L (98-107); CREATININE FOR GFR 0.93 MG/DL (0.55-1.30); GLOMERULAR FILTRATION RATE 83.8 (>60); POTASSIUM SERUM 4.1 MMOL/L (3.5-5.1); SODIUM LEVEL 142 MMOL/L (136-145)
[2025-05-25 15:41] LABS: HEPATITIS B SURFACE ANTIBODY POSITIVE (POSITIVE)
[2025-05-25 16:06] LABS: HIV SCREEN CENTAUR EXPOSED NEGATIVE (NEGATIVE)
[2025-05-25 16:14] LABS: HEPATITIS C VIRUS ABY INDEX < 0.02 INDEX (<0.8)
[2025-05-25 16:31] VITALS: BP 160/108; TEMP 98.8; O2SAT 100
== END 2025-05-25 16:38 | disposition home or self-care (01) ==
LOC: M ED 14:12
DX: Z77.21 Contact with and (suspected) exposure to potentially hazardous body fluids (principal); S61.032A Puncture wound without foreign body of left thumb without damage to nail, initial encounter; W46.1XXA Contact with contaminated hypodermic needle, initial encounter; Y92.9 Unspecified place or not applicable; Y93.9 Activity, unspecified; Y99.0 Civilian activity done for income or pay; I10 Essential (primary) hypertension; J45.909 Unspecified asthma, uncomplicated; Z86.79 Personal history of other diseases of the circulatory system; Z79.899 Other long term (current) drug therapy

== ENCOUNTER → 2025-09-16 | Outpatient (CLI) | payer OTHER | LOC: M RAD 06:37 | PROVIDERS: ATTEND Urology | DX: Z87.440 Personal history of urinary (tract) infections (principal); N13.30 Unspecified hydronephrosis ==

== ENCOUNTER → 2025-10-11 | Outpatient (CLI) | payer OTHER ==
[~2025-10-11] MED LIST changes: -LABE100T6 PO; +LABE100T91 PO
[2025-10-11 15:21] LABS: BASO # 0.0 10^3/uL (0.0-0.2); BASO % 0.4 % (0.0-1.0); EOS # 0.3 10^3/uL (0.0-0.5); EOS % 2.8 % (0.0-3.0); LYMPH # 3.0 10^3/uL (1.5-5.0); LYMPH % 32.8 % (24.0-44.0); MONO # 0.4 10^3/uL (0.0-0.8); MONO % 4.1 % (2.0-8.0); NEUTROPHILS # 5.5 10^3/uL (1.5-8.5); NEUTROPHILS % 59.7 % (36.0-66.0); PLATELET COUNT, AUTOMATED 270 10^3/uL (150-450)
[2025-10-11 15:52] LABS: ALT/SGPT 9 U/L (7.0-40); AST/SGOT 12 U/L (<34); CALCIUM LEVEL 8.9 MG/DL (8.5-10.1); CARBON DIOXIDE LEVEL 26 MMOL/L (20-31); CHLORIDE LEVEL 104 MMOL/L (98-107); CREATININE FOR GFR 0.86 MG/DL (0.55-1.30); GLOMERULAR FILTRATION RATE > 90.0 (>60); POTASSIUM SERUM 3.9 MMOL/L (3.5-5.1); SODIUM LEVEL 138 MMOL/L (136-145)
== END ==
LOC: M LAB 14:06
PROVIDERS: ATTEND Family Medicine
DX: K57.32 Diverticulitis of large intestine without perforation or abscess without bleeding (principal); R10.32 Left lower quadrant pain; R10.31 Right lower quadrant pain

== ENCOUNTER → 2025-10-12 | Outpatient (REF) | payer OTHER ==
[2025-10-12 12:13] LABS: APPEARANCE, URINE CLEAR (CLEAR); BACTERIA, URINE AUTO NEGATIVE (NEGATIVE); BILIRUBIN, URINE AUTO NEGATIVE (NEGATIVE); BLOOD, URINE BLOOD NEGATIVE (NEGATIVE); GLUCOSE, URINE (UA) AUTO NEGATIVE (NEGATIVE); KETONE, URINE AUTO NEGATIVE (NEGATIVE); LEUKOCYTE ESTERASE, URINE AUTO NEGATIVE (NEGATIVE); NITRITE, URINE AUTO NEGATIVE (NEGATIVE); PROTEIN, URINE AUTO NEGATIVE (NEGATIVE); RBC, URINE AUTO 0 /HPF (0-3); SPECIFIC GRAVITY URINE AUTO 1.005 (1.002-1.035); SQUAMOUS EPITHELIAL CELL UR AU 1 /HPF (0-6); UROBILINOGEN, URINE AUTO 0.2 mg/dL (0.0-2.0); WBC, URINE AUTO 0 /HPF (0-3)
== END ==
LOC: M LAB REF 10:59
PROVIDERS: ATTEND Physician Assistant Medical
DX: N39.0 Urinary tract infection, site not specified (principal); N13.732 Vesicoureteral-reflux with reflux nephropathy with hydroureter, bilateral